=== PATIENT | male | born 1945 | race Caucasian/White ===

== ENCOUNTER 2019-03-21 10:54 | Outpatient (CLI) | payer OTHER, SELFPAY ==
[2019-03-21 12:31] LABS: ALT 37 U/L (12-78); AST 28 U/L (15-37); Albumin 3.5 g/dL (3.4-5.0); Alkaline Phosphatase 61 U/L (46-116); Anion Gap 10.4 mmol/L (3-11); BUN 20 mg/dL (7-18); Bilirubin, Total 1.2 mg/dL (0.2-1.0); CO2 25.6 mmol/L (21.0-32.0); Calcium 8.7 mg/dL (8.5-10.1); Calculated LDL 41 mg/dL; Chloride 107 mmol/L (98-107); Cholesterol 121 mg/dL (50-200); Glucose 102 mg/dL (70-100); HDL Cholesterol 74 mg/dL (40-60); Potassium 4.7 mmol/L (3.5-5.1); Sodium 143 mmol/L (136-145); Total Protein 6.1 g/dL (6.4-8.2); Triglyceride 34 mg/dL (30-150)
== END 2019-03-21 11:14 ==
PROVIDERS: PCP Family Medicine; Visit Provider Family Medicine
DX: I10 Essential (primary) hypertension (principal)
CPT/HCPCS: 36415; 80053; 80061; 83721

== ENCOUNTER 2020-03-11 07:21 | Outpatient (CLI) | payer OTHER, SELFPAY ==
[2020-03-16 00:58] LABS: SARS-CoV-2 RNA Undetected (Undetected); SARS-CoV-2 Specimen Source Nasopharynx
== END 2020-03-11 07:41 ==
PROVIDERS: PCP Family Medicine; Visit Provider Family Medicine
DX: Z11.59 Encounter for screening for other viral diseases (principal)
CPT/HCPCS: U0003

== ENCOUNTER 2020-04-03 15:53 | Outpatient (REF) | payer OTHER, SELFPAY ==
[2020-04-04 12:13] LABS: Giardia & Cryptosporidium Ag POSITIVE
== END 2020-04-03 16:13 ==
LOC: LBN 15:53
PROVIDERS: PCP Family Medicine; Visit Provider Family Medicine
DX: R19.7 Diarrhea, unspecified (principal)
CPT/HCPCS: 87329

== ENCOUNTER 2020-04-19 08:10 | Outpatient (REF) | payer OTHER, SELFPAY ==
--- NOTE | 2020-04-19 | DI.CT_ITS ---
EXAM: CT HEAD WO_ SECOND READ CLINICAL HISTORY: MINOR HEAD TRAUMA, OFFICIAL READ OF OUTSIDE IMAGES TECHNIQUE: COMPARISON: No exams were available for comparison FINDINGS: Interpretation of outside films from [facility] dated March 21. Noncontrast cranial CT was performed. There is mild generalized cerebral atrophy. There is marked a symmetry of the appearance of the lateral cerebral ventricles. There appears to be a cavum vergae de formity with superimposed enlargement of right lateral ventricle and shift of the ventricular midline to the left. However the periventricular white matter does not appear significantly displaced or asymmetric. No g ross mass effect. Normal appearance of the 4th ventricle. Mildly dilated 3rd ventricle. No intracranial hemorrhage. Unremarkable appearance of the orbital structures. Visualized paranasal sinuses and mastoid air cells are clear. Unremarkable appearance of the temporal bone structures. IMPRESSION: Atypical appearance of lateral cerebral ventricles with underlying cavum vergae deformity. Due to th e severity of the asymmetry, I would suggest that brain MRI be performed without and with contrast ad ministration to rule out occult neoplastic disease causing ventricular outlet obstruction. RADIATION DOSE DELIVERED: Total DLP
== END 2020-04-19 08:30 ==
LOC: DI 08:10
PROVIDERS: PCP Family Medicine; Visit Provider Family Medicine
DX: R90.89 Other abnormal findings on diagnostic imaging of central nervous system (principal); G93.89 Other specified disorders of brain
CPT/HCPCS: 70450

== ENCOUNTER 2020-04-24 02:27 | Outpatient (CLI) | payer OTHER, SELFPAY ==
--- NOTE | 2020-04-24 07:45 | DI.MRI_ITS ---
EXAM: MR BRAIN WO/W CLINICAL HISTORY: abnl CT Scan, R93.0 TECHNIQUE: Multiplanar multisequence MRI of the brain was performed. CONTRAST MATERIAL: IV Contrast: 15 ML of Dotarem contrast administered. COMPARISON: CT CT HEAD WO from 03/21/2020 FINDINGS: VENTRICLES AND EXTRA AXIAL SPACES: There is an enlarged right lateral ventricle. Within the ventricl e there is a thin walled CSF signal intensity lesion present. It measures 6.1 x 3.2 cm. It does exh ibit a mass effect on the midline structures. No enhancement is seen following contrast administrati on there is cerebral atrophy consistent with the patient's age. HEMORRHAGE: None. CEREBRAL PARENCHYMA: No focus of restricted diffusion to suggest acute infarct. No space-occupying le bebeto identified. Multiple foci of hyperintense signal are seen on the T2 and FLAIR images in the whit e matter most consistent with chronic microvascular ischemic disease. MIDLINE SHIFT: None. BRAINSTEM/CEREBELLUM: Normal. CALVARIUM: Normal. ENHANCEMENT: No suspicious enhancement identified. VISUALIZED PARANASAL SINUSES/MASTOIDS: Clear. [place]: Normal flow void. PITUITARY GLAND: Unremarkable. OTHER FINDINGS: IMPRESSION: 6.1 x 3.2 cm thin walled nonenhancing CSF signal intensity lesion within the right lateral ventricle. Primary diagnostic consideration is for an ependymal cyst. Other consideration should include chor oid plexus cyst or epidermoid cyst. DATA REPOSITORY:
[2020-04-24 11:10] LABS: CREATININE 1.01 mg/dL (0.70-1.30)
[2020-04-24] MEDS: Normal Saline Flush 10 ML SYR IVP (11:24)
[2020-04-24] MEDS: Gadoterate meglumine 20 ML VIAL 15 ML IVP (11:24)
== END 2020-04-24 02:47 ==
PROVIDERS: PCP Family Medicine; Visit Provider Family Medicine
DX: R93.0 Abnormal findings on diagnostic imaging of skull and head, not elsewhere classified (principal)
CPT/HCPCS: 70553; 82565

== ENCOUNTER 2020-05-06 10:22 | Day surgery (SDC) | payer OTHER, SELFPAY ==
--- NOTE | 2020-05-06 06:58 | COLE_ITS ---
Date of service: 05/06/20 Time of Service: 12:06 Colonoscopy Report Date of procedure: 05/06/20 Pre-op diagnosis general: Hx of colon polyps Post-op diagnosis procedure note: other (Multiple polyps and gregorio-diverticulosis) Procedure: Colonoscopy with polypectomy Surgeon: Yasemin Boggs Anesthesia proc note operative: other (general/ASA 2/maurice Malik, [employer]) Estimated blood loss (mL): 5 Pathology: other (Cecal P x1, Descending P x3, sigmoid polyps x2) Complications: None Disposition: same day Indications: The patient is here for Colonoscopy pre-op. 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 He has no family history of colon cancer. He has not had any bowel habit changes. -Discussed colonoscopy bowel prep as well as the procedure. Discussed possible complications of the procedure to include bleeding, pain, perforation, missed small lesion/polyp, sore throat, aspiration and adverse reaction to the medications. Questions were answered to patient?s satisfaction. No guarantees were implied or given. He will hold his aspirin x 5 days prior to his procedure. Prep: Miralax/Dulcolax Procedure Start Time: 11:25 Procedure End Time: 12:00 Retraction Time: 19 minutes Findings: Multiple flat polyps and one pedunculated polyp Procedure Description: After informed consent was obtained the patient was taken to the procedure room and placed in a left decubitous position. Monitors were applied and a time out was done. The patients name, date of , procedure, allergies to medications and metal in their body was reviewed. The patient was then sedated. Once sedated and comfortable a rectal exam was done. External exam was normal. Internal exam revealed a normal sphincter tone and no palpable masses. The prostate felt smooth. The scope was then introduced and retro-flexed. No internal hemorrhoids were identified. The scope was then advanced to the cecum without difficulty. The ileocecal valve and appendiceal orifice were identified. The prep was good. The scope was then slowly retracted over 19 minutes back into the rectum. Polyps were removed with cold forceps in the cecum, descending colon and sigmoid colon. Polyps were removed with a hot snare in the descending colon x2 (sessile polyps both 10 mm in size) and sigmoid colon x1 (pedunculated polyp >10 mm in size). There was also gregorio-diverticulosis of the colon. The scope was removed and the patient was woken up and taken back to Same day surgery in stable condition. The patient tolerated the procedure well and there were no immediate complications. Follow up: The patient should follow up in 3 years unless they develop changes in bowel habits or other new gastrointestinal complaints.
--- NOTE | 2020-05-06 06:59 | W.PM.DSUDISC ---
Discharge Plan Disposition Patient Disposition: HOME Condition: Good Discharge Details Reason For Visit: Hx of polyps Attending Provider: Yasemin Boggs Primary Care Provider: Sunita Haynes Home Meds and New Rx's Prescriptions: Continued atorvastatin [Lipitor] 40 mg tablet 20 mg PO DAILY Qty: 90 RF: 12 calcium citrate-vitamin D3 [Calcium Citrate +] 1 EACH tablet 1 ea PO DAILY RF: 0 Varicella-Zoster Ge/As01b/Pf [Shingrix Vial Kit] 50 MCG INJ 50 mcg IM ONCE Qty: 1 RF: 1 aspirin [Aspir-81] 81 MG tablet,delayed release (DR/EC) 81 mg PO DAILY RF: 0 jbayuxhtree-zovjjbuyy-tqn C-Mn [Glucosamine 1500 Complex] 1 EACH capsule 1 cap PO BID RF: 0 lutein-zeaxanthin 1 EACH capsule 1 cap PO DAILY RF: 0 vitamin E 400 UNIT capsule 400 mg PO DAILY RF: 0 ascorbic acid-ascorbate sodium 500 MG wafer 500 mg PO DAILY RF: 0 omega-3 fatty acids-vitamin E 1,000 mg Capsule 1 cap PO DAILY RF: 0 Discontinued polyethylene glycol 3350 17 gram/dose powder 238 g PO ONCE Qty: 238 RF: 0 bisacodyl [Dulcolax (bisacodyl)] 5 mg tablet,delayed release (DR/EC) 5 mg PO ONCE Qty: 4 RF: 0 Discharge Instructions Additional Instructions: Findings: 7 polyps Diverticulosis Follow up: 3 years Please call if you develop: fevers >101.5 Nausea or Vomiting Abdominal pain that is not transient DAY SURGERY UNIT POST ENDOSCOPY INSTRUCTIONS 1. Because there will be medication in your system for the next 24 hours, you may feel a little sleepy. Your coordination will be affected. Therefore: a. Do not drive or operate dangerous equipment for 24 hours. b. Do not drink alcohol beverages for 24 hours (not even beer). c. Plan to go home and rest for the day. 2. Generally there are no restrictions on your activity after a day or so has gone by, but you may feel a bit fatigued for a few days. 3 After you arrive home you may have a light meal and return to a normal diet as you can tolerate it without feeling sick to your stomach. 4. After surgery, you may feel pain or discomfort. This should be only transient, but if it persists please contact your doctor. 5. If there are any questions regarding the findings of your procedure, please feel free to contact your doctor. 6. If you are unable to contact your doctor with a problem, contact the hospital at [phone]. 7. Continue all your regular medications unless directed otherwise. I understand the above instructions and have no questions. Signature of Patient or Responsible Adult Escort Date/Time Name of Responsible Adult Escort Signature of Nurse Date/Time Activity:: Activity as Tolerated Diet:: High Fiber diet Discharge Orders Discharge Orders: Discharge Order (Routine); Ordered 05/06/20 Ordered By: Yasemin Boggs
[2020-05-06 10:32] VITALS: BP 150/95; PULSE 67; RESP 16; TEMP 36.2; O2SAT 97
[2020-05-06] MEDS: Lactated Ringers 1,000 ML 80 ML IV (11:00)
--- NOTE | 2020-05-06 11:32 | BOWEL_PTH ---
PATIENT: Jose F Tom LOC: PARAM U#:[id number] AGE/SX: 75/M ROOM: RE05/06/[address]: Yasemin Boggs MD : 1945 BED: DIS: 05/06/2020 SPEC #: [id number] RECD: 05/06/20 12:49 STATUS: MITA RE #: [id number] DAVID: 05/06/20 11:[address]: Yasemin Boggs DEPT: Surgical Specimen RECD BY: Rosina Chery ENTERED: 05/06/20 12:51 SP TYPE: Bowel OTHR DR: Sunita Haynes MD, DC Tissues: 1 - BIOPSY BOWEL 2 - BIOPSY BOWEL 3 - BIOPSY BOWEL 4 - BIOPSY BOWEL Procedures: GROSS AND MICRO LEVEL 4 Comments: [id number]
[2020-05-06 12:30] VITALS: BP 110/74; PULSE 65; RESP 16; TEMP 36.2; O2SAT 96
== END 2020-05-06 13:03 | disposition home or self-care (01) ==
LOC: SUR 10:22
PROVIDERS: PCP Family Medicine; Visit Provider Surgery
PROC: 0DJD8ZZ Inspection of Lower Intestinal Tract, Via Natural or Artificial Opening Endoscopic (ICD-10-PCS; CPT 45378; principal; 2020-05-06 11:45)
DX: Z12.11 Encounter for screening for malignant neoplasm of colon (principal); D12.5 Benign neoplasm of sigmoid colon; D12.4 Benign neoplasm of descending colon; D12.0 Benign neoplasm of cecum; Z86.010 Personal history of colon polyps; I25.10 Atherosclerotic heart disease of native coronary artery without angina pectoris; K57.30 Diverticulosis of large intestine without perforation or abscess without bleeding
CPT/HCPCS: 45385; 45380; 88305; J2001

== ENCOUNTER 2020-05-30 00:18 | Outpatient (CLI) | payer OTHER, SELFPAY ==
--- NOTE | 2020-05-30 07:30 | DI.US_ITS ---
APPROVED REPORT EXAM: Comprehensive 2D, Doppler, and color-flow Echocardiogram Patient Location: Out-Patient Mri Ct Tech: Lucero Montilla RDCS (AE) Indications: CAD Other Information Study Quality: Good Conclusion Left Ventricle : The left ventricle is normal size. The left ventricular systolic function is normal. The left ventricular ejection fraction is within the normal range. There is normal left ventricular wall thickness. There is normal LV segmental wall motion. The left ventricular diastolic function is normal. LVEF is 55-60%. Right Ventricle : The right ventricle is normal size. The right ventricular systolic function is norm al. Atria : The left atrium size is normal. The right atrium size is normal. Mitral Valve : The mitral valve is normal in structure. No evidence of mitral valve stenosis. Mild to moderate mitral regurgitation. Mitral regurgitation jet is eccentrically directed. Great Vessels : The aortic root is normal in size. The ascending aorta is normal in size. Ascending a jered is not well visualized. IVC is normal in size and collapses >50% with inspiration. Study from 10/22/2017: There is no significant change. Wall motion Left Ventricle The left ventricle is normal size. The left ventricular systolic function is normal. The left ventric ular ejection fraction is within the normal range. There is normal left ventricular wall thickness. T here is normal LV segmental wall motion. The left ventricular diastolic function is normal. There is no ventricular septal defect visualized. LVEF is 55-60%. Right Ventricle The right ventricle is normal size. The right ventricular systolic function is normal. Atria The left atrium size is normal. The right atrium size is normal. The interatrial septum is intact wit h no evidence for an atrial septal defect. Aortic Valve The aortic valve is normal in structure. Aortic valve is trileaflet. There is no aortic valvular sten osis. Trace aortic regurgitation. Mitral Valve The mitral valve is normal in structure. No evidence of mitral valve stenosis. Mild to moderate ryan l regurgitation. Mitral regurgitation jet is eccentrically directed. Mild mitral valve prolapse. Tricuspid Valve The tricuspid valve is normal in structure. There is no tricuspid valve stenosis. Mild tricuspid regu rgitation. Pulmonic Valve The pulmonary valve is normal in structure. There is no pulmonic valvular stenosis. Trace pulmonic re gurgitation. Great Vessels The aortic root is normal in size. The ascending aorta is normal in size. Ascending aorta is not well visualized. IVC is normal in size and collapses >50% with inspiration. Pericardium There is no pericardial effusion. 2D Dimensions IVSD d PLAX 1.09 cm M: 0.6-1.2 LV Vol A2C d MOD 127.9 mL LVPW d PLAX 1.07 cm M: 0.6 - 1.2 LV Vol A4C d MOD 127.4 mL LVID d PLAX 5.79 cm M: 4.2 - 5.8 LA vol/ BSA A2C s A-L 30.1 mL/m2 LVDs 3.90 cm M: 2.5 - 4.0 LA vol/ BSA A4C s A-L 28.8 mL/m2 Ao Root d 3.44 cm M: 3.1 - 3.7 LA Vol/ BSA Biplane s A-L 31.0 mL/m2 RA Area A4C 15.31 cm2 LA Area A4C s MOD 19.35 cm2 RA Vol/ BSA A4C s A-L 19.5 mL/m2 LA Area A2C s MOD 18.74 cm2 Ao Asc Diam d 3.31 cm M: 2.6 - 3.4 LV EF A4C MOD 53.6 % LV EF Teichholz 59.7 % LV EF A2C MOD 57.3 % LVEF (Leigh's) 55.65 % M: 52 - 72 LV EF Biplane MOD 55.6 % LV Volume 98.31 mL M: 62 - 150 SV 72.30 mL LV Volume Index 50.67 mL/m2 M: 34 - 74 SV Index 37.11 mL/m2 LV Vol Biplane MOD 129.9 mL FS 32.20 % M-Mode TAPSE 2.68 cm (M/F) >1.7 LV Diastology MV E' medial 0.051 (>0.07 m/s) E/A Ratio 0.7 LV E/e MED 9.80 (<14) MV E Vmax 0.50 (0.4-1.3 m/s) MV E' lateral 0.059 (>0.1 m/s) MV A Vmax 0.70 (0.4-1.3 m/s) LV E/e LAT 8.50 (<14) MV E/A Ratio 0.70 MV E/E' medial 9.81 MV E/E' lateral 8.50 Aortic Valve LVOT Area 4.25 cm2 AoV Area Vmax 3.38 cm2 LVOT Vmax 0.80 m/s AoV Area/ BSA (Vmax) 1.73 cm2/m2 LVOT Mean [place]. 0.52 m/s LATASHA Mean [place]. 3.03 cm2 LVOT Peak Grad 2.6 mmHg LATASHA Mean [place]. Index 1.56 cm2/m2 LVOT Mean Grad 1.3 mmHg LVOT VTI 0.181 m LVOT Diam s 2.30 cm AoV Vmax 1.01 m/s Velocity Ratio 0.79 AoV Mean [place]. 0.73 m/s AoV Peak Grad 4.1 mmHg LVOT SV 76.71 mL AoV Mean Grad 2.3 mmHg AoV VTI 0.219 m AoV Area VTI 3.50 cm2 AoV Area/ BSA (VTI) 1.80 cm/m2 Mitral Valve MV DT 228 (160-240 msec) MR Vmax 5.84 m/s MV PHT 66 msec MR VTI 0.994 m MV Area PHT 3.33 cm2 MR Peak Grad 136.5 mmHg MV VTI 0.219 m MR Mean Grad 116.5 mmHg MV VTI Annulus 0.219 m MR PISA Radius 0.43 cm MV Area VTI 3.51 (4.0-6.0 cm2) MR EROA 0.07 cm2 MR Aliasing Velocity 0.35 m/s MR PISA 1.19 cm2 Pulmonary Valve PV Vmax 1.16 (0.5-1.5 m/s) RVOT Peak Gr. 2.32 mmHg PV Peak Grad 5.4 mmHg RVOT Mean Gr. 1.30 mmHg PV Mean Grad 2.9 mmHg RVOT VTI 0.149 m PV VTI 0.230 m RVOT Vmax 0.76 m/s Tricuspid Valve TR Peak Grad 18.1 mmHg TR Vmax 2.13 m/s RA Pressure 3.00 mmHg RVSP (TR) 21.2 mmHg
== END 2020-05-30 00:38 ==
PROVIDERS: PCP Family Medicine; Visit Provider Family Medicine
DX: I25.10 Atherosclerotic heart disease of native coronary artery without angina pectoris (principal); I34.0 Nonrheumatic mitral (valve) insufficiency
CPT/HCPCS: 93306

== ENCOUNTER 2020-06-19 04:44 | Outpatient (CLI) | payer OTHER, SELFPAY ==
[2020-06-19 13:34] LABS: ALT 34 U/L (16-63); AST 24 U/L (15-37); Albumin 3.8 g/dL (3.4-5.0); Alkaline Phosphatase 53 U/L (46-116); Anion Gap 3.7 mmol/L (3-11); BUN 18 mg/dL (7-18); Bilirubin, Total 1.7 mg/dL (0.2-1.0); CO2 32.3 mmol/L (21.0-32.0); CREATININE 0.88 mg/dL (0.70-1.30); Calcium 8.8 mg/dL (8.5-10.1); Chloride 105 mmol/L (98-107); Cholesterol 154 mg/dL (<200); Glucose 96 mg/dL (74-106); HDL Cholesterol 90 mg/dL (40-60); Potassium 4.6 mmol/L (3.5-5.1); Sodium 141 mmol/L (136-145); Total Protein 6.1 g/dL (6.4-8.2)
[2020-06-19 13:36] LABS: Triglyceride < 25 mg/dL (<150)
[2020-06-19 13:46] LABS: LDL CHOLESTEROL 54 mg/dL (<100)
[2020-06-27 12:46] LABS: PSA, Diagnostic 1.4 ng/ml (0-6.5)
== END 2020-06-19 05:04 ==
PROVIDERS: PCP Family Medicine; Visit Provider Family Medicine
DX: I10 Essential (primary) hypertension (principal); I25.10 Atherosclerotic heart disease of native coronary artery without angina pectoris; N40.0 Benign prostatic hyperplasia without lower urinary tract symptoms
CPT/HCPCS: 36415; 80053; 80061; 83721; 84153

== ENCOUNTER 2020-12-02 02:11 | Outpatient (CLI) | payer OTHER, SELFPAY ==
--- NOTE | 2020-12-02 07:40 | DI.MRI_ITS ---
EXAM: MR BRAIN WO/W CLINICAL HISTORY: follow up on [facility] MRI,CYST, R93.3 TECHNIQUE: Multiplanar multisequence MRI of the brain was performed. Both noninfused and contrast i nfused sequences were performed. IV Contrast injected was cc Dotarem. COMPARISON: CT CT HEAD WO from 03/21/2020 MR MR BRAIN WO/W from 04/24/2020 MR MR BRAIN WO/W from 04/24/2020 FINDINGS: CEREBRAL PARENCHYMA: There is no evidence of intracranial hemorrhage. The previously described thin walled cystic structure in the right lateral ventricle is again noted, this measuring 6 cm AP by 3.3 cm wide by 2.7 cm craniocaudal. This exhibits minimal if any significant change from prior study and is again noted be causing enlarg ement of the right lateral ventricle and shift of the midline septum, unchanged. Its wall does not e xhibit prominent enhancement and there is no abnormal nodularity nor abnormal enhancing mural nodules . No new surrounding parenchymal edema. There are multiple foci of white matter nonspecific signal which are unchanged. There are no ring en hancing lesions in the brain. No new abnormal meningeal enhancement, focal nor diffuse. No cerebell ar tonsillar ectopia. PITUITARY GLAND: No mass nor parasellar abnormality. No obvious abnormality in the cavernous sinuses. FLOW VOIDS: The expected flow void are noted. No evidence of obvious aneurysm nor obvious vascular ma lformation. PARANASAL SINUSES: The visualized paranasal sinuses appear unremarkable. ORBITS: No obvious abnormal findings. IMPRESSION: 1. No significant change compared to the prior MRI scan of April 24, 2020. The previously describ ed 6 x 3.3 x 2.6 cm thin walled nonenhancing CSF intensity signal lesion in the right lateral ventric le is again noted. Either large choroid plexus cyst versus ependymal cyst or epidermoid cyst. Never theless, unchanged without significant surrounding brain edema. 2. No abnormal enhancing intracranial finding. 3. Multiple foci of white matter hyperintense signal are unchanged consistent with chronic microvasc ular ischemic disease. There is no evidence of acute infarction. No evidence of intracranial hemorr grecia. DATA REPOSITORY:
[2020-12-02] MEDS: Normal Saline Flush 10 ML SYR IVP (09:09)
[2020-12-02] MEDS: Gadoterate meglumine 20 ML VIAL 16 ML IVP (09:10)
== END 2020-12-02 02:31 ==
PROVIDERS: PCP Family Medicine; Visit Provider Family Medicine
DX: R93.3 Abnormal findings on diagnostic imaging of other parts of digestive tract (principal); I67.82 Cerebral ischemia; Z01.812 Encounter for preprocedural laboratory examination
CPT/HCPCS: 70553; 82565

== ENCOUNTER 2021-04-21 08:33 | Observation (INO) | payer OTHER, SELFPAY ==
[2021-04-21] VITALS (68 sets, daily range): BP systolic 116–175; BP diastolic 71–110; PULSE 56–95; RESP 14–25; TEMP 36.3–37.6; O2SAT 93–99
--- NOTE | 2021-04-21 08:30 | RT.EKG_ITS ---
APPROVED REPORT Exam: Resting ECG Reason for Exam: chest pain Patient Location: E HR:62 bpm ECG Measurements Heart Rate 62 AXIS NV 212 P 48 QRSd 114 QRS 73 QT 422 T 34 QTc 430 Conclusion Sinus rhythm...normal P axis, V-rate 60- 99 Borderline prolonged NV interval...NV >212, V-rate 50- 90 ST elevation, consider anterior injury...ST >0.15mV, V1-V5 sinus rhythm at 62, normal axis, ST elevations V1 and V2 present on prior 06/11/2020, does not meet S GERMAN criteria, nondiagnostic EKG
--- NOTE | 2021-04-21 08:39 | ED.GENADUL_ITS ---
Discharge Plan Disposition Patient Disposition: [facility] INPATIENT Discharge Details Chief Complaint: Chest Pain Clinical Impression: Chest pain Primary Care Provider: Sunita Haynes ED Provider: Fadia Schaefer Home Meds and New Rx's Prescriptions: No Action calcium citrate-vitamin D3 [Calcium Citrate +] 1 EACH tablet 1 ea PO DAILY RF: 0 Varicella-Zoster Ge/As01b/Pf [Shingrix Vial Kit] 50 MCG INJ 50 mcg IM ONCE Qty: 1 RF: 1 aspirin [Aspir-81] 81 MG tablet,delayed release (DR/EC) 81 mg PO DAILY RF: 0 [id number] C-Mn [Glucosamine 1500 Complex] 1 EACH capsule 1 cap PO BID RF: 0 lutein-zeaxanthin 1 EACH capsule 1 cap PO DAILY RF: 0 vitamin E 400 UNIT capsule 400 mg PO DAILY RF: 0 ascorbic acid-ascorbate sodium 500 MG wafer 500 mg PO DAILY RF: 0 atorvastatin [Lipitor] 40 mg tablet 40 mg PO DAILY RF: 0 omega-3 fatty acids-vitamin E 1,000 mg Capsule 1 cap PO DAILY RF: 0 Medical Decision Making Jose F Tom is a 76-year-old man with a history of hypertension, coronary artery disease status post LAD stent who presented to the emergency department with chest pressure that started at 230 or 3:00 this morning while asleep. Patient reports pain was initially 4 out of 10, and now rates it as 1 out of 10. On exam there is no systolic murmur, cardiopulmonary exam otherwise benign. No chest tenderness palpation. No lower extremity edema, no posterior calf tenderness palpation. Concern for acute coronary syndrome, PE, musculoskeletal, other. Exam/history at this time is not consistent with acute aortic pathology, sepsis, acute emergent intra-abdominal pathology. EKG shows ST elevation V1 and V2 present on prior, no STEMI. Plan for IV placement, screening labs, telemetry. Imaging after D-dimer results. Will hold nitroglycerin for now as patient reporting pain 1 out of 10. Patient chewed full aspirin prior to arrival. 9:26: 10 beats of V.tach noted on monitor, patient asymptomatic, spontaneous conversion to sinus rhythm. 1448: Discussed Pt with Sobia Jaime of cardiology at [facility], accepting physician is Dr. Cardenas of cardiology for transfer tomorrow for possible catheterization. Cardiology recommends 81 mg of aspirin daily, 80 mg Lipitor daily, 12.5 mg metoprolol twice daily, n.p.o. after midnight for catheterization. Plan for admission to [facility]. Medical Records Medical records reviewed: Yes I reviewed the patient's medical records. Imaging Data Radiologic Study: Attestation: I personally reviewed and interpreted this imaging study as follows: Radiologist's impression: EXAM: XR CHEST 2V PA LATERAL CLINICAL HISTORY: chest pain TECHNIQUE: 2D digital imaging was performed. COMPARISON: CR CHEST 2 VIEWS PA,LAT from 05/16/2017 CR CHEST 2 VIEWS PA,LAT from 05/16/2017 FINDINGS: MEDIASTINUM: Normal. HEART: Normal. PULMONARY VASCULATURE: Normal. LUNGS: There is a question of a rounded opacity in the inferior aspect of the right lower lobe. This is best appreciated on the AP view. PLEURAL SPACE: No pleural effusion or pneumothorax. BONE:Within normal limits for the patient's age. OTHER FINDINGS:Normal. IMPRESSION: Opacity in the right inferior lung medially. Infiltrate versus mass. CT scan is recommended for further evaluation. EXAM: CT CHEST W CLINICAL HISTORY: abnormal CXR TECHNIQUE: Imaging Protocol: Axial computed tomography images with coronal and sagittal reformatted images were created and reviewed CONTRAST MATERIAL: Intravenous: Omnipaque 350 Contrast volume:70 mL. COMPARISON: CR XR CHEST 2V PA LATERAL from 04/21/2021 CR XR CHEST 2V PA LATERAL from 04/21/2021 FINDINGS: Tracheobronchial tree: Patent where visualized. Mediastinum and Bobbi: No dominant adenopathy or fluid collection. Pulmonary parenchyma: No consolidation or dominant measurable mass. No architectural distortion. There is a 0.4 cm noncalcified pulmonary nodule in the right middle lobe. There is dependent atelectasis in the lung bases. Pleura: No effusion or pneumothorax. Heart: The heart is not dilated. Mild coronary artery calcification. No pericardial effusion. Aorta: Thoracic aorta non-dilated. Mild atherosclerosis. Upper abdomen: Unremarkable. Lymph nodes: Within normal limits. Bones: Normal. Soft tissues: Unremarkable. IMPRESSION: 1. No finding in the right lung to correspond to the mammographic abnormality. 2. 0.4 cm noncalcified pulmonary nodule in the right middle lobe. For low risk patients, no follow-up is recommended. For high risk patients (history of smoking or other risk factors), a follow-up examination in 12 months is recommended. 3. Results of this exam have been verbally communicated with provider. Lab Data Lab results reviewed: Yes I reviewed the patient's lab results. Labs: Laboratory Tests Range/Units 04/21/21 04/21/21 04/21/21 08:48 08:48 08:48 WBC (4.4-10.8) 10^3/uL 6.98 RBC (4.36-5.78) 10^6/uL 4.39 Hgb (13.5-17.5) g/dL 14.5 Hct (40.0-50.0) % 44.5 MCV (80-95) fL 101.4 H MCH (27.0-33.0) pg 33.0 MCHC (32.0-36.0) % 32.6 RDW (11.8-14.1) % 12.6 Plt Count (130-400) 10^3/uL 189 MPV (8.0-11.0) fL 9.5 Immature Gran % 0.3 Neutrophils % 73.0 Lymphocytes % 11.7 Monocytes % 10.5 Eosinophils % 3.9 Basophils % 0.6 Nucleated RBC % % 0 Absolute Neutrophils (1.2-6.7) 10^3/uL 5.10 Absolute Lymphocytes (1.2-3.4) 10^3/uL 0.82 L Absolute Monocytes (0.1-0.8) 10^3/uL 0.73 Absolute Eosinophils (0.0-0.7) 10^3/uL 0.27 Absolute Basophils (0.0-0.2) 10^3/uL 0.04 PT (9.3-11.0) sec INR (0.9-1.1) D-Dimer (<500) ng/mlFEU Sodium (136-145) mmol/L 143 Potassium (3.5-5.1) mmol/L 4.4 Chloride (98-107) mmol/L 108 H Carbon Dioxide (21.0-32.0) mmol/L 32.3 H Anion Gap (3-11) mmol/L 2.7 L BUN (7-18) mg/dL 20 H Creatinine (0.70-1.30) mg/dL 0.9 Estimated GFR/1.73 m2 (mL/min/1.73m2) >= 60.00 Glucose (74-106) mg/dL 109 H Calcium (8.5-10.1) mg/dL 8.9 Magnesium (1.8-2.4) mg/dL 2.0 Total Bilirubin (0.2-1.0) mg/dL 1.0 AST (15-37) U/L 17 ALT (16-63) U/L 30 Alkaline Phosphatase (46-116) U/L 56 Troponin I (<0.06) ng/mL < 0.05 NT-Pro-B Natriuret Pep (<300) pg/mL 68 Total Protein (6.4-8.2) g/dL 6.6 Albumin (3.4-5.0) g/dL 3.7 Range/Units 04/21/21 04/21/21 08:48 11:45 WBC (4.4-10.8) 10^3/uL RBC (4.36-5.78) 10^6/uL Hgb (13.5-17.5) g/dL Hct (40.0-50.0) % MCV (80-95) fL MCH (27.0-33.0) pg MCHC (32.0-36.0) % RDW (11.8-14.1) % Plt Count (130-400) 10^3/uL MPV (8.0-11.0) fL Immature Gran % Neutrophils % Lymphocytes % Monocytes % Eosinophils % Basophils % Nucleated RBC % % Absolute Neutrophils (1.2-6.7) 10^3/uL Absolute Lymphocytes (1.2-3.4) 10^3/uL Absolute Monocytes (0.1-0.8) 10^3/uL Absolute Eosinophils (0.0-0.7) 10^3/uL Absolute Basophils (0.0-0.2) 10^3/uL PT (9.3-11.0) sec 9.9 INR (0.9-1.1) 1.0 D-Dimer (<500) ng/mlFEU 346 Sodium (136-145) mmol/L Potassium (3.5-5.1) mmol/L Chloride (98-107) mmol/L Carbon Dioxide (21.0-32.0) mmol/L Anion Gap (3-11) mmol/L BUN (7-18) mg/dL Creatinine (0.70-1.30) mg/dL Estimated GFR/1.73 m2 (mL/min/1.73m2) Glucose (74-106) mg/dL Calcium (8.5-10.1) mg/dL Magnesium (1.8-2.4) mg/dL Total Bilirubin (0.2-1.0) mg/dL AST (15-37) U/L ALT (16-63) U/L Alkaline Phosphatase (46-116) U/L Troponin I (<0.06) ng/mL < 0.05 NT-Pro-B Natriuret Pep (<300) pg/mL Total Protein (6.4-8.2) g/dL Albumin (3.4-5.0) g/dL ECG Data Attestation: I personally reviewed and interpreted this ECG (s) as follows: Interpretation: EKG 8:39 shows sinus rhythm at 62, normal axis, ST elevations V1 and V2 present on prior 06/11/2020, does not meet STEMI criteria, nondiagnostic EKG EKG 11: 46 shows sinus bradycardia 59, normal axis, ST elevation V1 and V2 without major change from prior, does not meet STEMI criteria, nondiagnostic EKG HPI General Mode of arrival: ambulatory . Date/Time Provider Initiated Documentation: 04/21/21 08:33 . Limitations to Documentation: no limitations . Information obtained by: patient, RN notes reviewed and old records reviewed . HPI Narrative: Jose F Tom is a 76 y/o man with a history of hypertension, coronary artery disease with LAD stent placed 2014 presenting to the emergency department chief complaint chest pain. Patient reports that he awoke from sleep at 2:30 or 3:00 this morning with a pressure sensation in his left chest. Patient reports that he slept poorly after that but did go back to sleep. He reports that he woke up this morning with the same pain. Patient reports that pain has been essentially unchanged since onset, although he reports it was possibly somewhat worse while climbing stairs this morning. Unchanged with eating. He reports that since being the emergency department and in the stretcher, his discomfort has decreased. He reports that at maximum discomfort was 4 out of 10, currently 1 out of 10. He reports that when climbing stairs this morning he may have felt somewhat more short of breath than usual, otherwise he denies associated symptoms. Before this morning he was previously well in his usual state of health. No unusual circumstances yesterday. No fever, cough, vomiting, diarrhea, numbness, weakness, swelling, rash. Patient reports that he drinks 2 to 3 glasses of wine per night and did so last night as usual. Has been eating and drinking fluids as usual. Patient reports that he ate breakfast without issue this morning. Patient reports that he runs 3 miles every other day, did so 2 days ago without issue. Patient was supposed to run this morning but did not due to his chest discomfort and presenting to the emergency department. Patient reports that he typically takes 81 mg of aspirin at night which she did last night. He also reports that he chewed 324 mg of aspirin this morning with his chest discomfort prior to arrival. Related Data Home Medications Medication Instructions Recorded Confirmed aspirin [Aspir-81] 81 mg PO DAILY 06/30/13 04/21/21 mppwcmbfnmd-vrksvensy-see C-Mn 1 cap PO BID 06/30/13 04/21/21 [Glucosamine 1500 Complex] lutein-zeaxanthin 1 cap PO DAILY 06/30/13 04/21/21 calcium citrate-vitamin D3 1 ea PO DAILY 12/18/13 04/21/21 [Calcium Citrate +] ascorbic acid-ascorbate sodium 500 mg PO DAILY 05/16/17 04/21/21 vitamin E 400 mg PO DAILY 05/16/17 04/21/21 omega-3 fatty acids-vitamin E 1 cap PO DAILY 05/03/20 04/21/21 atorvastatin [Lipitor] 40 mg PO DAILY 04/21/21 04/21/21 Allergies Allergy/AdvReac Type Severity Reaction Status Date / Time No Known Allergies Allergy Unverified 04/21/21 08:44 Review of Systems Narrative: Constitutional: denies fevers Eyes: denies eye pain ENT: denies ear pain, dental pain, sore throat Cardiovascular: denies edema, reports chest pressure Respiratory: denies cough, reports transient SOB as per HPI GI: denies abdominal pain, vomiting, diarrhea : denies flank pain MSK: denies back pain, neck pain, arthralgias, myalgias Skin: denies rash Neuro: denies headaches, numbness, weakness [facility] Medical History Abnormal CT scan of head Actinic keratosis Allergic rhinitis CAD (coronary artery disease) (06/05/14) stent place 06/05 Cardiovascular disease Hx of colonic polyps Hydrocele Hypertension Mitral valve prolapse Presence of stent in LAD coronary artery Skin cancer Surgical History Colonoscopy - IV Sedation (01/06/12) DR. TIMMONS-2 TUBULAR ADENOMAS Colonoscopy - MAC (05/19/17) History of shoulder surgery left Stented coronary artery Family History (Updated 06/14/20 @ 08:28 by Randy Odonnell) Mother , FALL at age 92. Essential hypertension Heart disease Father , 86 Essential hypertension Heart disease Myocardial infarction Brother Diabetes Essential hypertension Hyperlipidemia Maternal Grandfather , 76 Heart disease Paternal Grandfather , 56 No problems noted. Maternal Grandmother , 86 Heart disease Paternal Grandmother , 86 Heart disease Son No problems noted. Son Depression Alcohol abuse Hypertension Social History Smoking/Tobacco Use Status: Never Second Hand Exposure: Yes Smoking risk assessment performed?: Yes Alcohol Intake: current Alcohol Intake frequency: 0-2 drinks per day Alcohol type: beer, wine and hard liquor Drug use: Never Substance use type: does not use Caregiver/Support person: No Household members: spouse Housing: house Communication Needs: None Do you need help understanding health information?: Never Pets and animals: Yes Pets and animals: cat(s) and dog(s) Sexually active: Yes Do you think of yourself as: straight/heterosexual Current gender identity: male What is your relationship status?: How often do you talk on the phone with friends or family?: once per week How often do you get together with friends or relatives?: once per week How often do you attend presybeterian or caodaism services?: decline to answer Do you belong to any clubs or organized social groups?: no Panel score (0-1 are the most socially isolated patients): 1 What type of physical activity do you participate in: running Duration: 30-45 minutes/day Frequency: 3-4 times per week Lelo/Anabaptist: None Special lelo needs: No Seatbelt use: always Helmet use: Yes Helmet use: always Drive intox or ride w/intox racecar driver: No Do you feel safe at home: Yes Do you feel safe in your relationship?: Yes Victim of physical abuse: No Victim of emotional abuse: No Victim of sexual abuse: No Would you like helpful sources: No Exam Narrative Exam Narrative: Constitutional: well and [id number], pleasant, conversing normally HENT: head atraumatic/normocephalic/normal inspection, mucous membranes moist Eyes: conjunctiva normal, sclera normal, pupils 3mm b/l Neck: no stridor, normal ROM, trachea midline Chest: normal inspection, no tenderness to palpation Resp: normal work of breathing, LCTAB Cardio: normal rate, normal rhythm, systolic murmur present, patient reports as known GI: abdomen soft, non-tender, non-distended Back: normal inspection, no rash Skin: warm, dry, normal color, no rash Neuro: alert, not altered, grossly non-focal, normal tone Ext: no edema, no posterior calf tenderness to palpation Psych: normal mood, normal affect, normal behavior
[2021-04-21 09:17] LABS: Abs Immature Grans 0.02 10^3/uL (0.0-0.06); Absolute Basophil Count 0.04 10^3/uL (0.0-0.2); Absolute Eosinophil Count 0.27 10^3/uL (0.0-0.7); Absolute Lymphocyte Count 0.82 10^3/uL (1.2-3.4); Absolute Monocyte Count 0.73 10^3/uL (0.1-0.8); Basophils % 0.6; Eosinophils % 3.9; HCT 44.5 % (40.0-50.0); HGB 14.5 g/dL (13.5-17.5); Immature Grans % 0.3; Lymphocytes % 11.7; MCHC 32.6 % (32.0-36.0); MCV 101.4 fL (80-95); MPV 9.5 fL (8.0-11.0); Monocytes % 10.5; Nucleated RBC 0 %; Platelet Count 189 10^3/uL (130-400); RBC 4.39 10^6/uL (4.36-5.78); RDW 12.6 % (11.8-14.1); RDW-SD 47.5 fL; WBC 6.98 10^3/uL (4.4-10.8)
[2021-04-21 09:28] LABS: Prothrombin Time 9.9 sec (9.3-11.0)
[2021-04-21 09:57] LABS: D-Dimer 346 ng/mlFEU (<500)
--- NOTE | 2021-04-21 10:00 | DI.RAD_ITS ---
Exam(s) XR CHEST 2V PA LATERAL EXAM: XR CHEST 2V PA LATERAL CLINICAL HISTORY: chest pain TECHNIQUE: 2D digital imaging was performed. COMPARISON: CR CHEST 2 VIEWS PA,LAT from 05/16/2017 CR CHEST 2 VIEWS PA,LAT from 05/16/2017 FINDINGS: MEDIASTINUM: Normal. HEART: Normal. PULMONARY VASCULATURE: Normal. LUNGS: There is a question of a rounded opacity in the inferior aspect of the right lower lobe. This is best appreciated on the AP view. PLEURAL SPACE: No pleural effusion or pneumothorax. BONE:Within normal limits for the patient's age. OTHER FINDINGS:Normal. IMPRESSION: Opacity in the right inferior lung medially. Infiltrate versus mass. CT scan is recommended for fur ther evaluation. DATA REPOSITORY: RADIATION DOSE DELIVERED:
[2021-04-21 10:11] LABS: ALT 30 U/L (16-63); AST 17 U/L (15-37); Albumin 3.7 g/dL (3.4-5.0); Alkaline Phosphatase 56 U/L (46-116); Anion Gap 2.7 mmol/L (3-11); BUN 20 mg/dL (7-18); CO2 32.3 mmol/L (21.0-32.0); CREATININE 0.9 mg/dL (0.70-1.30); Calcium 8.9 mg/dL (8.5-10.1); Chloride 108 mmol/L (98-107); Glucose 109 mg/dL (74-106); NT-proBNP 68 pg/mL (<300); Potassium 4.4 mmol/L (3.5-5.1); Sodium 143 mmol/L (136-145); Total Protein 6.6 g/dL (6.4-8.2); Troponin I < 0.05 ng/mL (<0.06)
--- NOTE | 2021-04-21 11:30 | RT.EKG_ITS ---
APPROVED REPORT Exam: Resting ECG Reason for Exam: chest pain Patient Location: E HR:59 bpm ECG Measurements Heart Rate 59 AXIS WA 268 P 29 QRSd 103 QRS 63 QT 436 T 48 QTc 433 Conclusion Sinus bradycardia...rate< 60 Prolonged WA interval...WA >220, V-rate 50- 90 ST elevation, consider anterior injury...ST >0.15mV, V1-V5 sinus rhythm at 62, normal axis, ST elevations V1 and V2 present on prior 06/11/2020, does not meet S GERMAN criteria, nondiagnostic EKG
[2021-04-21 12:17] LABS: Troponin I < 0.05 ng/mL (<0.06)
--- NOTE | 2021-04-21 12:40 | DI.CT_ITS ---
Exam(s) CT CHEST W EXAM: CT CHEST W CLINICAL HISTORY: abnormal CXR TECHNIQUE: Imaging Protocol: Axial computed tomography images with coronal and sagittal reformatted images were created and reviewed CONTRAST MATERIAL: Intravenous: Omnipaque 350 Contrast volume:70 mL. COMPARISON: CR XR CHEST 2V PA LATERAL from 04/21/2021 CR XR CHEST 2V PA LATERAL from 04/21/2021 FINDINGS: Tracheobronchial tree: Patent where visualized. Mediastinum and Bobbi: No dominant adenopathy or fluid collection. Pulmonary parenchyma: No consolidation or dominant measurable mass. No architectural distortion. Ther e is a 0.4 cm noncalcified pulmonary nodule in the right middle lobe. There is dependent atelectasis in the lung bases. Pleura: No effusion or pneumothorax. Heart: The heart is not dilated. Mild coronary artery calcification. No pericardial effusion. Aorta: Thoracic aorta non-dilated. Mild atherosclerosis. Upper abdomen: Unremarkable. Lymph nodes: Within normal limits. Bones: Normal. Soft tissues: Unremarkable. IMPRESSION: 1. No finding in the right lung to correspond to the mammographic abnormality. 2. 0.4 cm noncalcified pulmonary nodule in the right middle lobe. For low risk patients, no follow-u p is recommended. For high risk patients (history of smoking or other risk factors), a follow-up exa mination in 12 months is recommended. 3. Results of this exam have been verbally communicated with provider. RADIATION DOSE DELIVERED: 683.92mGy.cm Total DLP DATA REPOSITORY: All CT scans at this facility are submitted to the National Radiology Data Registry (NRDR) Dose Index Registry (DIR) with the [employer] (A[employer]). RADIATION OPTIMIZATION: All CT scans at this facility use at least one of these dose optimization te chniques: automated exposure control; mA and/or kV adjustment per patient size (includes targeted exa ms where dose is matched to clinical indication); or iterative reconstruction.
[2021-04-21] MEDS: Omnipaque 350 MG/ML 100 ML BTL IV (13:06)
[2021-04-21 15:08] LABS: Source Nasal/Nares
--- NOTE | 2021-04-21 16:14 | W.PM.HP.N ---
Date of service: 04/21/21 Time of Service: 16:15 Assessment and Plan Assessment and plan (1) Chest pain: Status: Acute Assessment and plan: Concern for unstable angina. Monitor on tele, continue to trend troponins. Accepted in transfer to [facility] [place] for tomorrow under Dr Cardenas for a possible cardiac cath. (2) Nonsustained paroxysmal ventricular tachycardia: Status: Acute Assessment and plan: Start metoprolol with holding parameters. OBtain echo. I think this could be an indication of an unstable coronary lesion and I feel the patient would benefit from a cardiac cath on this admission. (3) CAD (coronary artery disease): Status: Chronic Assessment and plan: S/p MARY CARMEN to LAD in 2013. As above Qualifiers: Associated angina: without angina Coronary Disease-Associated Artery/Lesion type: [place] artery [place] vs. transplanted heart: [place] heart Qualified Code(s): I25.10 - Atherosclerotic heart disease of [place] coronary artery without angina pectoris (4) Essential hypertension: Status: Chronic Assessment and plan: not normally on medications. Start metoprolol with holding parameters (5) Hyperlipidemia: Status: Chronic Assessment and plan: Continue statin. Check fasting lipid panel. (6) Pulmonary nodule: Status: Acute Assessment and plan: Will need follow up CT in 12 months (7) DVT prophylaxis: Status: Acute Assessment and plan: SC lovenox (8) Discharge planning issues: Status: Acute Assessment and plan: Full code Accepted in transfer to [facility] [place] for tomorrow History of Present Illness History of Present Illness Chief Complaint: Chest discomfort Narrative: Mr Tom is a 76 year old male with PMHx of CAD s/p MARY CARMEN to LAD in 2013, as well as h/o mitral valve prolapse, hypertension, hyperlipidemia, who was awoken from sleep at 2-3 am this morning by left-sided nonradiating chest discomfort/pressure without dizziness, palpitations, nausea, or shortness of breath. He tried to meditation - this made it slightly better, but it didn't go away completely. This was slightly worse with exertion. He chewed his own aspirin prior to coming to the ED. In the ED, he had two negative troponins. His EKGs showed old ST elevations in V1-V2. While in the ED, he had an episode of asymptomatic Vtach (10 beats). His CXR showed a possible infiltrated, but CT imaging did not confirm this, showing only a 0.4 cm noncalcified pulmonary nodule in right middle lobe as well as atelectasis. Hospitalist admission was requested for further ischemic workup as well as management of the non-sustained Vtach. Dr Blanton recommends initiation of beta blockers. The patient is accepted at [facility] for a possible cardiac cath by Dr Cardenas. He still has chest discomfort at the time of my interview with him. Review of Systems All systems reviewed & are unremarkable except as noted in HPI and below PFSH Medical History Abnormal CT scan of head Actinic keratosis Allergic rhinitis CAD (coronary artery disease) (06/05/14) stent place 06/05 Cardiovascular disease Hx of colonic polyps Hydrocele Hypertension Mitral valve prolapse Presence of stent in LAD coronary artery Skin cancer Surgical History Colonoscopy - IV Sedation (01/06/12) DR. TIMMONS-2 TUBULAR ADENOMAS Colonoscopy - MAC (05/19/17) History of shoulder surgery left Stented coronary artery Family History (Updated 06/14/20 @ 08:28 by Randy Odonnell) Mother , FALL at age 92. Essential hypertension Heart disease Father , 86 Essential hypertension Heart disease Myocardial infarction Brother Diabetes Essential hypertension Hyperlipidemia Maternal Grandfather , 76 Heart disease Paternal Grandfather , 56 No problems noted. Maternal Grandmother , 86 Heart disease Paternal Grandmother , 86 Heart disease Son No problems noted. Son Depression Alcohol abuse Hypertension Social History Smoking/Tobacco Use Status: Never Second Hand Exposure: Yes Smoking risk assessment performed?: Yes Alcohol Intake: current Alcohol Intake frequency: 0-2 drinks per day Alcohol type: beer, wine and hard liquor Drug use: Never Substance use type: does not use Caregiver/Support person: No Household members: spouse Housing: house Communication Needs: None Do you need help understanding health information?: Never Pets and animals: Yes Pets and animals: cat(s) and dog(s) Sexually active: Yes Do you think of yourself as: straight/heterosexual Current gender identity: male What is your relationship status?: How often do you talk on the phone with friends or family?: once per week How often do you get together with friends or relatives?: once per week How often do you attend confucianism or catholic services?: decline to answer Do you belong to any clubs or organized social groups?: no Panel score (0-1 are the most socially isolated patients): 1 What type of physical activity do you participate in: running Duration: 30-45 minutes/day Frequency: 3-4 times per week Lelo/Zoroastrian: None Special lelo needs: No Seatbelt use: always Helmet use: Yes Helmet use: always Drive intox or ride w/intox dedicated truck driver: No Do you feel safe at home: Yes Do you feel safe in your relationship?: Yes Victim of physical abuse: No Victim of emotional abuse: No Victim of sexual abuse: No Would you like helpful sources: No Meds Allergies and Home Medications Allergies Allergy/AdvReac Type Severity Reaction Status Date / Time No Known Allergies Allergy Unverified 04/21/21 08:44 Home Medications Medication Instructions Recorded Confirmed Type aspirin [Aspir-81] 81 mg PO DAILY 06/30/13 04/21/21 History hajgxsiyobk-[id number]-ujo C-Mn 1 cap PO BID 06/30/13 04/21/21 History [Glucosamine 1500 Complex] lutein-zeaxanthin 1 cap PO DAILY 06/30/13 04/21/21 History calcium citrate-vitamin D3 1 ea PO DAILY 12/18/13 04/21/21 History [Calcium Citrate +] ascorbic acid-ascorbate sodium 500 mg PO DAILY 05/16/17 04/21/21 History vitamin E 400 mg PO DAILY 05/16/17 04/21/21 History Varicella-Zoster Ge/As01b/Pf 50 mcg IM ONCE #1 kit 02/21/18 04/21/21 Clinic [Shingrix Vial Kit] omega-3 fatty acids-vitamin E 1 cap PO DAILY 05/03/20 04/21/21 History atorvastatin [Lipitor] 40 mg PO DAILY 04/21/21 04/21/21 History Exam Narrative Exam Narrative: General: Pleasant elderly male who is fit, A&Ox3, appears comfortable in bed Neurological: A&Ox3, no focal deficits Psychiatric: Appropriate speech pattern/content Skin: Visible skin intact HEENT: Atraumatic, normocephalic, EOMI, MMM, Clear oropharynx, no submandibular or cervical lymphadenopathy, no goiter or JVD Cardiovascular: RRR, no m/r/g Lungs: CTAB Gastrointestinal: soft,nontender, nondistended Genitourinary: deferred Extremities: no edema BLE's, 1+ pedal pulses B Results Imaging Additional studies: CXR: Opacity in the right inferior lung medially. Infiltrate versus mass. CT scan is recommended for further evaluation. CTA chest: 1. No finding in the right lung to correspond to the mammographic abnormality. 2. 0.4 cm noncalcified pulmonary nodule in the right middle lobe. For low risk patients, no follow-up is recommended. For high risk patients (history of smoking or other risk factors), a follow-up examination in 12 months is recommended. 3. Results of this exam have been verbally communicated with provider. EKG #1: HR 62, NSR, ST elevations V1-V3, old, no obvious acute ischemia EKG #2: HR 59, NSR, possible slight elevations of ST segments in lateral leads , but not enough to be considered formal ST elevations Labs Result diagrams: 04/21/21 08:48 04/21/21 08:48 Labs: Laboratory Results - last 24 hr 04/21/21 04/21/21 04/21/21 08:48 08:48 08:48 WBC 6.98 RBC 4.39 Hgb 14.5 Hct 44.5 MCV 101.4 H MCH 33.0 MCHC 32.6 RDW 12.6 Plt Count 189 MPV 9.5 Immature Gran % 0.3 Neutrophils % 73.0 Lymphocytes % 11.7 Monocytes % 10.5 Eosinophils % 3.9 Basophils % 0.6 Nucleated RBC % 0 Absolute Neutrophils 5.10 Absolute Lymphocytes 0.82 L Absolute Monocytes 0.73 Absolute Eosinophils 0.27 Absolute Basophils 0.04 PT INR D-Dimer Sodium 143 Potassium 4.4 Chloride 108 H Carbon Dioxide 32.3 H Anion Gap 2.7 L BUN 20 H Creatinine 0.9 Estimated GFR/1.73 m2 >= 60.00 Glucose 109 H Calcium 8.9 Magnesium 2.0 Total Bilirubin 1.0 AST 17 ALT 30 Alkaline Phosphatase 56 Troponin I < 0.05 NT-Pro-B Natriuret Pep 68 Total Protein 6.6 Albumin 3.7 COVID-19 Source 04/21/21 04/21/21 04/21/21 08:48 11:45 14:50 WBC RBC Hgb Hct MCV MCH MCHC RDW Plt Count MPV Immature Gran % Neutrophils % Lymphocytes % Monocytes % Eosinophils % Basophils % Nucleated RBC % Absolute Neutrophils Absolute Lymphocytes Absolute Monocytes Absolute Eosinophils Absolute Basophils PT 9.9 INR 1.0 D-Dimer 346 Sodium Potassium Chloride Carbon Dioxide Anion Gap BUN Creatinine Estimated GFR/1.73 m2 Glucose Calcium Magnesium Total Bilirubin AST ALT Alkaline Phosphatase Troponin I < 0.05 NT-Pro-B Natriuret Pep Total Protein Albumin COVID-19 Source Nasal/Nares Last Vital Signs Temp 36.3 C L 04/21/21 14:59 Pulse 83 04/21/21 14:59 Resp 18 04/21/21 14:59 BP 145/81 H 04/21/21 14:59 Pulse Ox 98 04/21/21 14:59
[2021-04-21] MEDS: nitroGLYcerin 0.4 MG TAB SL ×2 (16:57→17:06)
[2021-04-21] MEDS: Mylanta Suspension 30 ML CUP PO (17:20)
[2021-04-21] MEDS: Acetaminophen 325 MG TAB PO (17:20)
[2021-04-21 18:40] LABS: COVID-19 PCR Negative (Negative)
[2021-04-21 18:45] LABS: Troponin I < 0.05 ng/mL (<0.06)
[2021-04-21] MEDS: Metoprolol 12.5 MG TAB PO (19:42)
[2021-04-21] MEDS: Normal Saline Flush 10 ML SYR IVP (19:42)
[2021-04-22 03:46] VITALS: BP 131/80; PULSE 71; RESP 18; TEMP 36; O2SAT 98
[2021-04-22 06:59] VITALS: PULSE 63
[2021-04-22 07:29] LABS: Abs Immature Grans 0.02 10^3/uL (0.0-0.06); Absolute Basophil Count 0.04 10^3/uL (0.0-0.2); Absolute Eosinophil Count 0.27 10^3/uL (0.0-0.7); Absolute Lymphocyte Count 1.26 10^3/uL (1.2-3.4); Absolute Monocyte Count 0.62 10^3/uL (0.1-0.8); Absolute Neutrophil Count 3.81 10^3/uL (1.2-6.7); Basophils % 0.7; Eosinophils % 4.5; HGB 14.8 g/dL (13.5-17.5); Immature Grans % 0.3; Lymphocytes % 20.9; MCH 32.7 pg (27.0-33.0); MCHC 32.9 % (32.0-36.0); MCV 99.6 fL (80-95); MPV 9.7 fL (8.0-11.0); Monocytes % 10.3; Neutrophils % 63.3; Nucleated RBC 0 %; Platelet Count 191 10^3/uL (130-400); RBC 4.52 10^6/uL (4.36-5.78); RDW 12.8 % (11.8-14.1); RDW-SD 46.7 fL; WBC 6.02 10^3/uL (4.4-10.8)
[2021-04-22] MEDS: Aspirin E.C. 81 MG TABEC PO (07:53)
[2021-04-22] MEDS: Omega-3 Fatty Acids 1000 MG CAP PO (07:53)
[2021-04-22 07:54] VITALS: BP 124/79; PULSE 59; RESP 17; TEMP 36.1; O2SAT 98
[2021-04-22] MEDS: Atorvastatin 40 MG TAB PO (07:55)
[2021-04-22] MEDS: Ascorbic Acid 500 MG TAB PO (07:55)
--- NOTE | 2021-04-22 08:00 | DI.US_ITS ---
APPROVED REPORT EXAM: Comprehensive 2D, Doppler, and color-flow Echocardiogram Patient Location: In-Patient Room/Bed: 212 Animation Director: Lucero Montilla RDCS (AE) Indications: V Tach, Chest pain, CAD Other Information Study Quality: Adequate Conclusion Left Ventricle : The left ventricle is normal size. The left ventricular systolic function is normal. The left ventricular ejection fraction is within the normal range. There is normal left ventricular wall thickness. There is normal LV segmental wall motion. The left ventricular diastolic function is normal. LVEF is 58%. Right Ventricle : The right ventricle is normal size. The right ventricular systolic function is norm al. The RVSP is 24 mmHg. Atria : The left atrium size is normal. The right atrium size is normal. Mitral Valve : Mild mitral regurgitation. Mitral regurgitation jet is eccentrically directed. No evid ence of mitral valve stenosis. Mild mitral valve prolapse. Great Vessels : The aortic root is normal in size. The ascending aorta is normal in size. Aortic arch is normal in caliber. IVC is normal in size and collapses >50% with inspiration. Please see remainder of study for further details. Wall motion Left Ventricle The left ventricle is normal size. The left ventricular systolic function is normal. The left ventric ular ejection fraction is within the normal range. There is normal left ventricular wall thickness. T here is normal LV segmental wall motion. The left ventricular diastolic function is normal. There is no ventricular septal defect visualized. LVEF is 58%. Right Ventricle The right ventricle is normal size. The right ventricular systolic function is normal. The RVSP is 24 mmHg. Atria The left atrium size is normal. The right atrium size is normal. The interatrial septum is intact wit h no evidence for an atrial septal defect. Aortic Valve The aortic valve is normal in structure. Aortic valve is trileaflet. There is no aortic valvular sten osis. Trace aortic regurgitation. Mitral Valve No evidence of mitral valve stenosis. Mild mitral regurgitation. Mitral regurgitation jet is eccentri sage directed. Mild mitral valve prolapse. Tricuspid Valve The tricuspid valve is normal in structure. There is no tricuspid valve stenosis. Trace to mild tricu spid regurgitation. Pulmonic Valve The pulmonary valve is normal in structure. There is no pulmonic valvular stenosis. Trace pulmonic re gurgitation. Great Vessels The aortic root is normal in size. The ascending aorta is normal in size. Aortic arch is normal in ca liber. IVC is normal in size and collapses >50% with inspiration. Pericardium There is no pericardial effusion. 2D Dimensions IVSD d PLAX 1.09 cm M: 0.6-1.2 LV Vol A2C d MOD 149.6 mL LVPW d PLAX 1.08 cm M: 0.6 - 1.2 LV Vol A4C d MOD 151.4 mL LVID d PLAX 5.08 cm M: 4.2 - 5.8 LA vol/ BSA A2C s A-L 28.2 mL/m2 LVDs 3.50 cm M: 2.5 - 4.0 LA vol/ BSA A4C s A-L 27.3 mL/m2 Ao Root d 3.44 cm M: 3.1 - 3.7 LA Vol/ BSA Biplane s A-L 29.3 mL/m2 RA Area A4C 15.96 cm2 LA Area A4C s MOD 18.73 cm2 RA Vol/ BSA A4C s A-L 23.2 mL/m2 LA Area A2C s MOD 18.00 cm2 Ao Asc Diam d 3.38 cm M: 2.6 - 3.4 LV EF A4C MOD 58.3 % LV EF Teichholz 58.1 % LV EF A2C MOD 58.0 % LVEF (Leigh's) 56.84 % M: 52 - 72 LV EF Biplane MOD 56.8 % LV Volume 113.45 mL M: 62 - 150 SV 85.58 mL LV Volume Index 57.58 mL/m2 M: 34 - 74 SV Index 43.39 mL/m2 LV Vol Biplane MOD 150.6 mL FS 30.75 % M-Mode TAPSE 2.09 cm (M/F) >1.7 LV Diastology MV E' medial 0.048 (>0.07 m/s) E/A Ratio 0.6 LV E/e MED 9.25 (<14) MV E Vmax 0.44 (0.4-1.3 m/s) MV E' lateral 0.049 (>0.1 m/s) MV A Vmax 0.70 (0.4-1.3 m/s) LV E/e LAT 9.05 (<14) MV E/A Ratio 0.60 MV E/E' medial 9.25 MV E/E' lateral 9.07 Aortic Valve LVOT Area 3.48 cm2 AoV Area Vmax 2.58 cm2 LVOT Vmax 0.79 m/s AoV Area/ BSA (Vmax) 1.31 cm2/m2 LVOT Mean [place]. 0.46 m/s LATASHA Mean [place]. 2.23 cm2 LVOT Peak Grad 2.5 mmHg LATASHA Mean [place]. Index 1.13 cm2/m2 LVOT Mean Grad 1.1 mmHg LVOT VTI 0.187 m LVOT Diam s 2.10 cm AoV Vmax 1.07 m/s Velocity Ratio 0.73 AoV Mean [place]. 0.73 m/s AoV Peak Grad 4.6 mmHg LVOT SV 64.87 mL AoV Mean Grad 2.4 mmHg AoV VTI 0.231 m AoV Area VTI 2.81 cm2 AoV Area/ BSA (VTI) 1.42 cm/m2 Mitral Valve MV DT 445 (160-240 msec) MR Vmax 5.94 m/s MV PHT 129 msec MR VTI 2.063 m MV Area PHT 1.70 cm2 MR Peak Grad 141.1 mmHg MV VTI 0.283 m MR Mean Grad 99.3 mmHg MV VTI Annulus 0.298 m MR PISA Radius 0.46 cm MV Area VTI 2.42 (4.0-6.0 cm2) MR EROA 0.08 cm2 MR Aliasing Velocity 0.35 m/s MR PISA 1.35 cm2 Pulmonary Valve PV Vmax 1.36 (0.5-1.5 m/s) RVOT Peak Gr. 1.87 mmHg PV Peak Grad 7.4 mmHg RVOT Mean Gr. 0.85 mmHg PV Mean Grad 3.2 mmHg RVOT VTI 0.162 m PV VTI 0.249 m RVOT Vmax 0.68 m/s Tricuspid Valve TR Peak Grad 20.9 mmHg TR Vmax 2.29 m/s RA Pressure 3.00 mmHg RVSP (TR) 23.9 mmHg
[2021-04-22 08:38] LABS: Anion Gap 8.9 mmol/L (3-11); BUN 18 mg/dL (7-18); CO2 30.1 mmol/L (21.0-32.0); Calcium 8.8 mg/dL (8.5-10.1); Calculated LDL 51 mg/dL (<100); Chloride 106 mmol/L (98-107); Cholesterol 155 mg/dL (<200); Glucose 103 mg/dL (74-106); HDL Cholesterol 88 mg/dL (40-60); Potassium 4.3 mmol/L (3.5-5.1); Sodium 145 mmol/L (136-145); Triglyceride 83 mg/dL (<150)
[2021-04-22 08:55] LABS: Magnesium 2.2 mg/dL (1.8-2.4)
[2021-04-22] MEDS: Vitamin E 400 UNITS CAP PO (10:52)
[2021-04-22 11:15] VITALS: BP 154/81; PULSE 66; RESP 17; TEMP 35.4; O2SAT 98
--- NOTE | 2021-04-22 12:46 | CMPROGNOTE_ITS ---
Care Management Progress Note Per MD: Monitor on tele, continue to trend troponins. Accepted in transfer to [facility] [place] under Dr. Cardenas for a possible cardiac cath. Anticipate he will transfer via EMS coordinated by Nursing Motor Vehicle Emissions Inspector.
--- NOTE | 2021-04-22 12:46 | PDOC.CMPRO ---
Care Management Progress Note Per MD: Monitor on tele, continue to trend troponins. Accepted in transfer to [facility] [place] cardiology under Dr. Cardenas for a possible cardiac cath. Anticipate he will transfer via EMS coordinated by Nursing Hospice Art Therapist.
[2021-04-22] MEDS: Metoprolol 12.5 MG TAB PO (12:55)
--- NOTE | 2021-04-22 13:44 | CHAPLAIN ---
Jose F was sitting up in a chair in his room, listening to something on his phone, when I visited. He told me he was meditating and then agreed that he'd like to continue. I explained my role briefly and let him know how to reach me.
[2021-04-22 15:45] VITALS: BP 108/69; PULSE 58; RESP 18; TEMP 36.4; O2SAT 97
--- NOTE | 2021-04-22 16:51 | DSE_ITS ---
Date of service: 04/22/21 Time of Service: 16:52 DS: Diagnosis Discharge Diagnosis (1) Chest pain: Status: Acute (2) Nonsustained paroxysmal ventricular tachycardia: Status: Acute (3) CAD (coronary artery disease): Status: Chronic (4) Essential hypertension: Status: Chronic (5) Hyperlipidemia: Status: Chronic (6) Pulmonary nodule: Status: Acute (7) COVID-19 ruled out by laboratory testing: Status: Ruled-out Discharge Plan Disposition Patient Disposition: [facility] Condition: Fair Discharge Details Reason For Visit: Unstable Angina,Nonsustained Vtach Admit Date/Time: 04/21/21 14:11 Admit Provider: Beronica Robles Attending Provider: Beronica Robles Primary Care Provider: Sunita Haynes [facility] Course Hospital Course: Mr Tom is a 76 year old male with PMHx of CAD s/p MARY CARMEN [place] [facility] as well as h/o hypertension, hyperlipidemia, and mitral valve prolapse, who was a patient on [facility] hospitalist service while awaiting a bed at [facility] from 04/21/21 until 04/22/21 for suspected unstable angina with chest pain at rest. Additionally, the patient had an episode of non-sustained VTach in the ED which was asymptomatic, but the conjunction of the two has further elevated suspicion of an unstable coronary lesion. He had negative troponins x 3. His EKG showed old ST elevations in VT-V3. The patient's response to nitroglycerin was not clear. The patient underwent an echocardiogram, which revealed LVEF of 58%, nml LV wall motion. RVSP was 24 mmHg. Mitral valve prolapse was again seen. The patient was accepted at [facility] [place] Dr Cardenas of Cardiology for further ischemic evaluation (high risk stress test vs cardiac cath). He is in agreement with transfer and is stable for transfer. Incidentally followed pulmonary nodule will need outpatient follow up in 12 months - defer to PCP. Care for patient as well as completion of his discharge summary on day of transfer took 45 minutes. Please, look at MAR for list of inpatient medications. The list below reflects outpatient prescriptions. Home Meds and New Rx's Prescriptions: No Action calcium citrate-vitamin D3 [Calcium Citrate +] 1 EACH tablet 1 ea PO DAILY RF: 0 Varicella-Zoster Ge/As01b/Pf [Shingrix Vial Kit] 50 MCG INJ 50 mcg IM ONCE Qty: 1 RF: 1 aspirin [Aspir-81] 81 MG tablet,delayed release (DR/EC) 81 mg PO DAILY RF: 0 lvsmmtfjrzf-pmmgljghp-poo C-Mn [Glucosamine 1500 Complex] 1 EACH capsule 1 cap PO BID RF: 0 lutein-zeaxanthin 1 EACH capsule 1 cap PO DAILY RF: 0 vitamin E 400 UNIT capsule 400 mg PO DAILY RF: 0 ascorbic acid-ascorbate sodium 500 MG wafer 500 mg PO DAILY RF: 0 atorvastatin [Lipitor] 40 mg tablet 40 mg PO DAILY RF: 0 omega-3 fatty acids-vitamin E 1,000 mg Capsule 1 cap PO DAILY RF: 0 Discharge Instructions Activity:: Activity as Tolerated Diet:: heart healthy diet Discharge Orders Discharge Orders: Discharge Order (Routine); Ordered 04/22/21 Ordered By: Beronica Robles DS: Summary Time Spent with Patient providing and/or coordinating discharge services: Greater than 30 minutes Status at Discharge Functional status at discharge: independent ambulation Overall status at discharge: patient is back to baseline Mental Status: mental status grossly normal Speech and Movement: speech and movement normal Mood: congruent mood Affect: normal affect Exam Narrative Exam Narrative: General: Pleasant elderly male who is fit, A&Ox3, appears comfortable in bed Neurological: A&Ox3, no focal deficits Psychiatric: Appropriate speech pattern/content Skin: Visible skin intact HEENT: Atraumatic, normocephalic, EOMI, MMM, Clear oropharynx, no submandibular or cervical lymphadenopathy, no goiter or JVD Cardiovascular: RRR, no m/r/g Lungs: CTAB Gastrointestinal: soft,nontender, nondistended Genitourinary: deferred Extremities: no edema BLE's, 1+ pedal pulses B Psych Mental Status: mental status grossly normal Speech and Movement: speech and movement normal Mood: congruent mood Affect: normal affect DS: Data Vitals/I&O Vitals and I&O: Vital Signs Temperature 36.4 C L 04/22/21 15:45 Temperature Source Tympanic 04/22/21 15:45 Pulse 58 L 04/22/21 15:45 Pulse Rhythm Regular 04/22/21 08:00 Pulse 94 H 04/21/21 14:50 Respiratory Rate 18 04/22/21 15:45 Respiratory Effort 04/22/21 08:00 Respiratory Depth Normal 04/22/21 08:00 Respiratory Pattern Normal 04/22/21 08:00 Blood Pressure 108/69 04/22/21 15:45 Blood Pressure Mean 111 04/21/21 14:47 Blood Pressure Position Sitting 04/21/21 08:41 Pulse Oximetry 97 04/22/21 15:45 Oxygen Delivery Method Room Air 04/22/21 15:45 Oxygen Flow Rate 0 04/22/21 15:45 Pain Level 0 04/22/21 15:45 Comment 04/21/21 17:34 Intake & Output 04/21/21 04/22/21 04/22/21 23:59 11:59 23:59 Intake Total 900 / 910 110 / 110 Output Total 350 / 350 1700 / 1700 Balance 550 / 560 -1590 / -1590 Weight 79.379 kg 78.29 kg Intake: IV 10 Oral 890 / 890 100 / 100 Output: Urine 350 / 350 1700 / 1700 Other: Urine Color Pale Light Ebatriz Urine Appearance Clear Clear Urine Odor None None Comment Per pt. report, void x1 in the toilet while in the ER. t Voiding Methods Toilet Toilet Data Completed and Pending Completed studies during hospitalization [Text1]: Echo: Left Ventricle : The left ventricle is normal size. The left ventricular systolic function is normal. The left ventricular ejection fraction is within the normal range. There is normal left ventricular wall thickness. There is normal LV segmental wall motion. The left ventricular diastolic function is normal. LVEF is 58%. Right Ventricle : The right ventricle is normal size. The right ventricular systolic function is normal. The RVSP is 24 mmHg. Atria : The left atrium size is normal. The right atrium size is normal. Mitral Valve : Mild mitral regurgitation. Mitral regurgitation jet is eccentrically directed. No evidence of mitral valve stenosis. Mild mitral valve prolapse. Great Vessels : The aortic root is normal in size. The ascending aorta is normal in size. Aortic arch is normal in caliber. IVC is normal in size and collapses >50% with inspiration. Please see remainder of study for further details. CTA chest: 1. No finding in the right lung to correspond to the mammographic abnormality. 2. 0.4 cm noncalcified pulmonary nodule in the right middle lobe. For low risk patients, no follow-up is recommended. For high risk patients (history of smoking or other risk factors), a follow-up examination in 12 months is recommended. 3. Results of this exam have been verbally communicated with provider. CXR: Opacity in the right inferior lung medially. Infiltrate versus mass. CT scan is recommended for further evaluation. Labs on day of discharge: Labs from last 24 hours 04/22/21 04/22/21 04/22/21 06:56 06:56 06:56 WBC 6.02 RBC 4.52 Hgb 14.8 Hct 45.0 MCV 99.6 H MCH 32.7 MCHC 32.9 RDW 12.8 Plt Count 191 MPV 9.7 Immature Gran % 0.3 Neutrophils % 63.3 Lymphocytes % 20.9 Monocytes % 10.3 Eosinophils % 4.5 Basophils % 0.7 Nucleated RBC % 0 Absolute Neutrophils 3.81 Absolute Lymphocytes 1.26 Absolute Monocytes 0.62 Absolute Eosinophils 0.27 Absolute Basophils 0.04 Sodium 145 Potassium 4.3 Chloride 106 Carbon Dioxide 30.1 Anion Gap 8.9 BUN 18 Creatinine 1.0 Estimated GFR/1.73 m2 >= 60.00 Glucose 103 Calcium 8.8 Magnesium 2.2 Troponin I Triglycerides 83 Total Cholesterol 155 LDL Cholesterol, Calc 51 HDL Cholesterol 88 SARS-CoV-2 (PCR) 04/21/21 04/21/21 18:05 14:50 WBC RBC Hgb Hct MCV MCH MCHC RDW Plt Count MPV Immature Gran % Neutrophils % Lymphocytes % Monocytes % Eosinophils % Basophils % Nucleated RBC % Absolute Neutrophils Absolute Lymphocytes Absolute Monocytes Absolute Eosinophils Absolute Basophils Sodium Potassium Chloride Carbon Dioxide Anion Gap BUN Creatinine Estimated GFR/1.73 m2 Glucose Calcium Magnesium Troponin I < 0.05 Triglycerides Total Cholesterol LDL Cholesterol, Calc HDL Cholesterol SARS-CoV-2 (PCR) Negative [facility] Medical History Abnormal CT scan of head Actinic keratosis Allergic rhinitis CAD (coronary artery disease) (06/05/14) stent place 06/05 Cardiovascular disease Hx of colonic polyps Hydrocele Hypertension Mitral valve prolapse Presence of stent in LAD coronary artery Skin cancer Surgical History Colonoscopy - IV Sedation (01/06/12) DR. TIMMONS-Kristopher TUBULAR ADENOMAS Colonoscopy - MAC (05/19/17) History of shoulder surgery left Stented coronary artery Family History (Updated 06/14/20 @ 08:28 by Randy Odonnell) Mother , FALL at age 92. Essential hypertension Heart disease Father , 86 Essential hypertension Heart disease Myocardial infarction Brother Diabetes Essential hypertension Hyperlipidemia Maternal Grandfather , 76 Heart disease Paternal Grandfather , 56 No problems noted. Maternal Grandmother , 86 Heart disease Paternal Grandmother , 86 Heart disease Son No problems noted. Son Depression Alcohol abuse Hypertension Social History Smoking/Tobacco Use Status: Never Second Hand Exposure: Yes Smoking risk assessment performed?: Yes Alcohol Intake: current Alcohol Intake frequency: 0-2 drinks per day Alcohol type: beer, wine and hard liquor Drug use: Never Substance use type: does not use Caregiver/Support person: No Household members: spouse Housing: house Communication Needs: None Do you need help understanding health information?: Never Pets and animals: Yes Pets and animals: cat(s) and dog(s) Sexually active: Yes Do you think of yourself as: straight/heterosexual Current gender identity: male What is your relationship status?: How often do you talk on the phone with friends or family?: once per week How often do you get together with friends or relatives?: once per week How often do you attend denominational or orthodoxy services?: decline to answer Do you belong to any clubs or organized social groups?: no Panel score (0-1 are the most socially isolated patients): 1 What type of physical activity do you participate in: running Duration: 30-45 minutes/day Frequency: 3-4 times per week Lelo/Congregation: None Special lelo needs: No Seatbelt use: always Helmet use: Yes Helmet use: always Drive intox or ride w/intox car driver: No Do you feel safe at home: Yes Do you feel safe in your relationship?: Yes Victim of physical abuse: No Victim of emotional abuse: No Victim of sexual abuse: No Would you like helpful sources: No
--- NOTE | 2021-04-22 18:12 | NUR.NOTE ---
Nursing Note: Report called to Candy at [facility]. Pt left facility at 1800 via ambulance.
== END 2021-04-22 17:57 | disposition short-term general hospital (02) | DRG 303 ==
LOC: ER 15:00 → MS 15:15
PROVIDERS: Admitting Provider Internal Medicine; Emergency Provider Student in an Organized Health Care Education/Training Program; PCP Family Medicine; Visit Provider Internal Medicine
DX: I25.110 Atherosclerotic heart disease of native coronary artery with unstable angina pectoris (principal); I47.2 Ventricular tachycardia; Z95.5 Presence of coronary angioplasty implant and graft; I10 Essential (primary) hypertension; I34.0 Nonrheumatic mitral (valve) insufficiency; E78.5 Hyperlipidemia, unspecified; R91.1 Solitary pulmonary nodule; Z20.822 Contact with and (suspected) exposure to COVID-19
CPT/HCPCS: 36415; 80048; 80053; 80061; 87635; 93005; 93306; 99285; 71046; 71260; 83735; 83880; 84484; 85025; 85379; 85610; 93010; 99217; 99220; 99223; 99239; J3490

== ENCOUNTER 2022-02-19 08:54 | Outpatient (REF) | payer MEDICARE, SELFPAY ==
--- NOTE | 2022-02-19 07:45 | SKI_PTH ---
PATIENT: Jose F Tom LOC: [facility] U#:[id number] AGE/SX: 77/M ROOM: RE02/19/[address]: Sunita Haynes MD, DC : 1945 BED: DIS: 02/19/2022 SPEC #: [id number] RECD: 02/19/22 12:48 STATUS: MITA RERodney #: [id number] DAVID: 02/19/22 07:[address]: Sunita Haynes DEPT: Surgical Specimen RECD BY: Rosina Chery Tissues: 1 - SKIN BIOPSY(SHAVE/PUNCH) Procedures: SKIN LEVEL 4 Comments: [id number]
== END 2022-02-19 08:55 | disposition home or self-care (01) ==
LOC: LBN 08:54
PROVIDERS: PCP Family Medicine; Visit Provider Family Medicine
DX: L57.0 Actinic keratosis (principal); L98.9 Disorder of the skin and subcutaneous tissue, unspecified
CPT/HCPCS: 88305

== ENCOUNTER → 2022-04-15 01:27 | Outpatient (CLI) | payer MEDICARE, SELFPAY ==
--- NOTE | 2022-04-15 11:15 | DI.RAD_ITS ---
Exam(s) XR HIP LT COMPLETE AP PELVIS EXAM: XR HIP LT COMPLETE AP PELVIS CLINICAL HISTORY: hip pain, M25.559. TECHNIQUE: 2D digital imaging was performed. COMPARISON: No exams were available for comparison FINDINGS: Two views No evidence of pelvic nor hip fracture. SI joints appear unremarkable. Bone density normal. Additional lateral view of the left hip does not exhibit joint space narrowing nor osteophytes nor kiet ny excrescence on the femoral neck. IMPRESSION: No significant osseous findings in the pelvis and hips. DATA REPOSITORY: RADIATION DOSE DELIVERED:
--- NOTE | 2022-04-15 11:21 | DI.RAD_ITS ---
Exam(s) XR KNEE LT 3V AP,LAT,ELOY EXAM: XR KNEE LT 3V AP,LAT,ELOY CLINICAL HISTORY: knee pain,M25.569. TECHNIQUE: 2D digital imaging was performed. COMPARISON: CR RIGHT KNEE 3 VIEWS from 01/25/2015 FINDINGS: Four views No evidence of fracture nor joint effusion. No joint space narrowing. Bone density normal. No osse ous lesions. On the lateral view there is slight increased density in the quadriceps fat pad just above the patell a, of questionable significance. IMPRESSION: Minimal degenerative changes. No osteochondral defects. No joint effusion. Other findings as above. DATA REPOSITORY: RADIATION DOSE DELIVERED:
== END ==
PROVIDERS: PCP Family Medicine; Visit Provider Family Medicine
DX: M25.552 Pain in left hip (principal); M25.562 Pain in left knee
CPT/HCPCS: 73562; 73502

== ENCOUNTER → 2022-06-17 10:00 | Outpatient (BNVA) | payer MEDICARE, SELFPAY | PROVIDERS: PCP Family Medicine; Referring Provider Family Medicine; Visit Provider Surgery | DX: C44.612 Basal cell carcinoma of skin of right upper limb, including shoulder (principal) | CPT/HCPCS: 11602 ==

== ENCOUNTER 2022-06-17 10:24 | Outpatient (REF) | payer MEDICARE, SELFPAY ==
--- NOTE | 2022-06-17 10:45 | SKI_PTH ---
PATIENT: Jose F Tom LOC: [facility] U#:[id number] AGE/SX: 77/M ROOM: RE06/17/[address]: Anton Madison MD : 1945 BED: DIS: 06/17/2022 SPEC #: [id number] RECD: 06/17/22 13:11 STATUS: MITA RERodney #: [id number] DAVID: 06/17/22 10:[address]: Anton Madison DEPT: Surgical Specimen RECD BY: Rosina Chery ENTERED: 06/17/22 13:11 SP TYPE: SKI OTHR DR: Sunita Haynes MD, DC Tissues: 1 - SKIN BIOPSY(SHAVE/PUNCH) Procedures: SKIN LEVEL 4 Comments: [id number]
== END 2022-06-17 10:25 | disposition home or self-care (01) ==
LOC: LBN 10:24
PROVIDERS: PCP Family Medicine; Visit Provider Surgery
DX: C44.612 Basal cell carcinoma of skin of right upper limb, including shoulder (principal)
CPT/HCPCS: 88305

== ENCOUNTER → 2022-06-29 09:57 | Outpatient (BNVA) | payer MEDICARE, SELFPAY | PROVIDERS: PCP Family Medicine; Referring Provider Family Medicine; Visit Provider Surgery | DX: Z48.02 Encounter for removal of sutures (principal); C44.91 Basal cell carcinoma of skin, unspecified ==

== ENCOUNTER 2022-08-05 02:57 | Outpatient (CLI) | payer MEDICARE, SELFPAY ==
[2022-08-05 12:47] LABS: ALT 32 U/L (16-63); AST 26 U/L (15-37); Albumin 3.9 g/dL (3.4-5.0); Alkaline Phosphatase 68 U/L (46-116); BUN 21 mg/dL (7-18); Bilirubin, Total 1.8 mg/dL (0.2-1.0); Calculated LDL 47 mg/dL (<100); Chloride 105 mmol/L (98-107); Cholesterol 137 mg/dL (<200); Estimated GFR 77.52 (mL/min/1.73m2); Glucose 88 mg/dL (74-106); HDL Cholesterol 81 mg/dL (40-60); Potassium 3.9 mmol/L (3.5-5.1); Sodium 142 mmol/L (136-145); Total Protein 6.9 g/dL (6.4-8.2); Triglyceride 46 mg/dL (<150)
[2022-08-05 23:20] LABS: PSA, Diagnostic 1.8 ng/mL (<=6.5)
== END 2022-08-05 02:58 | disposition home or self-care (01) ==
LOC: LOS 03:02
PROVIDERS: PCP Family Medicine; Visit Provider Family Medicine
DX: I10 Essential (primary) hypertension (principal); N40.0 Benign prostatic hyperplasia without lower urinary tract symptoms
CPT/HCPCS: 36415; 80053; 80061; 84153

== ENCOUNTER → 2023-04-29 13:06 | Outpatient (BNVA) | payer MEDICARE, SELFPAY | PROVIDERS: PCP Family Medicine; Referring Provider Family Medicine; Visit Provider Physical Therapy Assistant | DX: Z12.11 Encounter for screening for malignant neoplasm of colon (principal); Z86.010 Personal history of colon polyps ==

== ENCOUNTER 2023-05-21 08:12 | Day surgery (SDC) | payer MEDICARE, SELFPAY ==
--- NOTE | 2023-05-20 21:40 | W.COLOREPORT ---
Date of service: 05/21/23 Time of Service: 09:48 Colonoscopy Report Date of procedure: 05/21/23 Pre-op diagnosis general: Villous adenoma of sigmoid colon Post-op diagnosis procedure note: other (Polyps/pandiverticular disease/external hemorrhoid) Surgeon: Natalia Zuñiga Anesthesia Type: General:No Airway Pathology: other Complications: None Disposition: same day Prep: Miralax/Dulcolax Retraction Time: 16 Procedure Description: After informed consent was obtained the patient was taken to the procedure room and placed in a left decubitous position. Monitors were applied and a time out was done. The patients name, date of , procedure, allergies to medications and metal in their body was reviewed. The patient was then sedated. Once sedated and comfortable a rectal exam was done. External exam was normal except for a nonthrombosed external hemorrhoid at the 12 o'clock position . Internal exam revealed a normal sphincter tone and no palpable masses. The prostate normal The scope was then introduced and retrofelexed. no internal hemorrhoids were identified. The scope was then advanced to the cecum without BBPS difficulty. The TI and appendiceal orifice were identified. The prep was BBPS 3 in all segments for a total of 9. The scope was then slowly retracted over 16 minutes back into the rectum. Polyps were removed at 90 cm. It is a flat 5 mm polyp that is removed with a cold biting forcep. All specimen is retrieved and no bleeding is noted. He does have pandiverticular disease that carry all the way over from the cecum to the sigmoid colon. There are small mouth in size and number. There are no signs of active bleeding or infection.. The scope was removed and the patient was woken up and taken back to Same day surgery in stable condition. The patient tolerated the procedure well and there were no immediate complications. Follow up: The patient should follow up in 5 years, pathology pending, unless they develop changes in bowel habits or other new gastrointestinal complaints.
--- NOTE | 2023-05-20 21:41 | PDOC.DSDIS_ITS ---
Date of service: 05/21/23 Time of Service: 09:52 Discharge Plan Disposition Patient Disposition: Home Condition: Improving Discharge Details Reason For Visit: Colonoscopy Attending Provider: Natalia Zuñiga Primary Care Provider: Sunita Haynes Home Meds and New Rx's Prescriptions: Continued hydrochlorothiazide 12.5 mg capsule 12.5 mg PO QAM Qty: 90 4RF polyethylene glycol 3350 17 gram/dose powder 17 g PO ONCE Qty: 238 0RF Rx Instructions: Take per colonoscopy instructions provided by ordering providers office calcium citrate-vitamin D3 [Calcium Citrate +] 1 EACH tablet 1 ea PO DAILY Varicella-Zoster Ge/As01b/Pf [Shingrix Vial Kit] 50 MCG INJ 50 mcg IM ONCE Qty: 1 1RF Rx Instructions: second dose 2-6 months atorvastatin [Lipitor] 40 mg tablet 40 mg PO DAILY Qty: 90 5RF metoprolol tartrate 25 mg tablet 25 mg PO BID Qty: 180 5RF aspirin [Aspir-81] 81 MG tablet,delayed release (DR/EC) 81 mg PO DAILY cclwnojlkju-xdrxujghp-xtt C-Mn [Glucosamine 1500 Complex] 1 EACH capsule 1 cap PO BID lutein-zeaxanthin 1 EACH capsule 1 cap PO DAILY vitamin E 400 UNIT capsule 400 mg PO DAILY ascorbic acid-ascorbate sodium 500 MG wafer 500 mg PO DAILY omega-3 fatty acids-vitamin E 1,000 mg Capsule 1 cap PO DAILY Discontinued bisacodyl [Dulcolax (bisacodyl)] 5 mg tablet,delayed release (DR/EC) 5 mg PO ONCE Qty: 4 0RF Rx Instructions: Take per colonoscopy instructions provided by ordering providers office Discharge Instructions Additional Instructions: DSU Colonoscopy Post- Op Instructions Instructions for Everyone who is given Anesthesia: For your safety, please do the following for the next t wenty-four (24) hours: *Do Not operate a motor vehicle (car, truck, motorcycle, etc.) *Do Not drink alcoholic beverages or use any recreational drugs for the first 24 hours or while taking pain medications. The medications in your body may have a reaction that can be dangerous. *Do Not make any important decisions or sign any important papers. Findings: Hemorrhoids diverticula-make sure you are moving your bowels on a regular basis and you are not straining to go to the bathroom. If you are having some irregularity or straining then we recommend you start a fiber product daily such as Metamucil. polyp Follow up: My office will send a letter in 2 to 3 weeks time detailing when we want to repeat the colonoscopy, most likely 5 years time. 1. No lifting over 20 pounds or strenuous activity for the first 24 hours after your procedure. After 24 hours there are no restrictions on your activity but you may feel fatigued for a few days. 2. After you arrive home you may have a light meal and return to your normal diet as you can tolerate it without feeling sick to your stomach. 3. You may have a bloated, gaseous feeling in your belly (abdomen) after a colonoscopy. Passing gas and belching will help. Walking or lying down on your left side with your knees flexed may relieve the discomfort. Call the office at [phone] (Office) or [phone] (Hospital) right away if you notice any of the following: a.Vomiting of blood or ?coffee ground stools?. b.Rectal bleeding 1Tbsp, blood clots or continuous bleeding. c.Severe belly (abdominal) pain. d.A hard distended belly (abdomen) and an inability to pass gas. 4. Please don?t expect to have a normal BM (bowel movement) for 2-3 days after your procedure. 5. If there are questions regarding the findings of your procedure, please contact your doctor 6. If you are unable to contact your doctor with a problem, contact the hospital at [phone]. 7. Continue all your regular medications unless directed otherwise. I understand the above instructions and have no questions. Signature of Patient or Adult Escort Name of Responsible Adult Escort Signature of Nurse Date/Time Activity:: See above Diet:: See above Discharge Orders Discharge Orders: Discharge Order (Routine); Ordered 05/21/23 Ordered By: Natalia Zuñiga DS: Diagnosis Discharge Diagnosis (1) Tubulovillous adenoma of colon: Status: Acute Asessment and Plan: The patient is seen and examined after their colonoscopy.? The patient has been able to pass gas.? They are not having abdominal pain.? They have been able to tolerate liquids and a snack.? They do not have any nausea or vomiting.? They are not having any chest pain or shortness of breath.??? They are not having any rectal bleeding. Their vital signs have been stable-see nursing notes. We discussed findings during their colonoscopy, and any biopsies that were done/polyps that were removed. The patient will be sent a letter with any biopsy results, and when to repeat the colonoscopy.-see discharge instructions. Patient was given explicit instructions to follow-up regarding colonoscopy-refer to discharge instructions.? We reviewed resumption of medications. Patient verbalized understanding and discharged in stable and satisfactory condition- See nursing notes. (2) Pancolonic diverticulosis: Status: Acute (3) Malignant neoplasm of skin: Status: Acute (4) Hydrocele: Status: Acute (5) Essential hypertension: Status: Chronic (6) CAD (coronary artery disease): Status: Chronic (7) Allergic rhinitis: Status: Acute (8) Presence of stent in LAD coronary artery: Status: Acute (9) Mitral valve prolapse: Status: Acute (10) BPH (benign prostatic hyperplasia): Status: Chronic (11) Hyperlipidemia: Status: Chronic (12) Nonsustained paroxysmal ventricular tachycardia: Status: Acute (13) BPH (benign prostatic hyperplasia): Status: Chronic (14) Hypertension: (15) Cardiovascular disease: (16) Allergic rhinitis:
[2023-05-21 08:40] VITALS: BP 148/96; PULSE 55; RESP 16; TEMP 36.2; O2SAT 100
[2023-05-21] MEDS: Lactated Ringers 1,000 ML 80 ML IV (08:50)
--- NOTE | 2023-05-21 08:54 | ANES.PREOP_ITS ---
General Info Date of Service Date Performed: 05/21/23 Height: 5 ft 10 in Weight: 78.9 kg Body Mass Index (BMI): 24.9 Surgical Procedure: Operation Date: 05/21/23 09:50 Proposed Procedure Side Surgeon devin Zuñiga, DO Meds Allergies and Home Medications Allergies Allergy/AdvReac Type Severity Reaction Status Date / Time No Known Allergies Allergy Unverified 05/21/23 08:33 Home Medication Medication Instructions Recorded aspirin 81 mg tablet,delayed 81 mg PO DAILY 06/30/13 release (Aspir-) nlvgpkryjpx-vbsvtqqgk-jvy C-Mn 500 1 cap PO BID 06/30/13 mg-400 mg capsule (Glucosamine 1) lutein 40 mg-zeaxanthin 1,600 mcg 1 cap PO DAILY 06/30/13 capsule calcium citrate 315 mg-vitamin D3 1 ea PO DAILY 12/18/13 5 mcg (200 unit) tablet (Calcium Citrate +) ascorbic acid-ascorbate sodium 500 mg PO DAILY 05/16/17 (vitamin C) 500 mg oral wafer vitamin E 268 mg (400 unit) capsule 400 mg PO DAILY 05/16/17 omega-3 fatty acids-vitamin E 1 cap PO DAILY 05/03/20 1,000 mg capsule atorvastatin 40 mg tablet (Lipitor) 40 mg PO DAILY #90 tabs 06/29/22 hydrochlorothiazide 12.5 mg capsule 12.5 mg PO QAM #90 caps 07/28/22 bisacodyl 5 mg tablet,delayed 5 mg PO ONCE #4 tabs 04/29/23 release (Dulcolax (bisacodyl)) polyethylene glycol 3350 17 17 g PO ONCE #238 grams 04/29/23 gram/dose oral powder metoprolol tartrate 25 mg tablet 25 mg PO BID #180 tabs 05/03/23 Current Visit Medications: Current Medications Generic Name Dose Route Start Last Admin Trade Name Freq PRN Reason Stop Dose Admin Ringer's Solution 1,000 mls @ 80 mls/hr 05/21/23 06:00 IV 05/21/23 23:59 INFUSION [facility] IV Miscellaneous Supplies 1 each 05/21/23 06:00 Iv Access IV 05/21/23 23:59 DIRECTED [facility] Ondansetron HCl 4 mg 05/21/23 04:21 Ondansetron 4 Mg/2 Ml Vial IVP 06/20/23 04:20 Q4H PRN PRN Nausea / Vomiting Sodium Chloride 0 ml 05/21/23 06:00 Normal Saline Flush 10 Ml Syr IV 05/21/23 23:59 PRN PRN Sodium Chloride 0 ml 05/21/23 06:00 Normal Saline 10 Ml Vial IJ 05/21/23 23:59 DIRECTED PRN Sterile Water 0 ml 05/21/23 06:00 Water,Injection,Sterile 10 Ml Vial IJ 05/21/23 23:59 DIRECTED PRN PFSH Active Problems Active Problems: Problem Status Onset Code Conjunctivitis H10.9 Tubular adenoma D36.9 Pancolonic diverticulosis 05/19/17 K57.30 Malignant neoplasm of skin C44.90 Knee pain 07/22/96 M25.569 Hydrocele N43.3 Essential hypertension 06/19/13 I10 Epicondylitis Shoulder dislocation S43.006A Closed fracture of radius S52.90XA Chest pain R07.9 CAD (coronary artery disease) 06/05/14 I25.10 Allergic rhinitis J30.9 Actinic keratosis L57.0 Presence of stent in LAD coronary artery Z95.5 Mitral valve prolapse I34.1 BPH (benign prostatic hyperplasia) N40.[address] of the head R93.0 Tubular adenoma of colon D12.6 Tubulovillous adenoma of colon D12.6 BPH (benign prostatic hyperplasia) N40.0 Nonsustained paroxysmal ventricular tachycardia I47.2 Hyperlipidemia E78.5 Bursitis due to overuse M70.80 Hip pain M25.559 Knee pain M25.569 Actinic keratoses L57.0 Basal cell carcinoma C44.91 Skin lesion L98.9 Left hip pain M25.552 Medical History Medical History Abnormal CT scan of head Actinic keratosis Allergic rhinitis Cardiovascular disease Chest pain Discharge planning issues Hx of colonic polyps Hydrocele Hypertension Pulmonary nodule 0.4mm - no f/u recommended Skin cancer Surgical History Surgical History Colonoscopy - IV Sedation (01/06/12) DR. TIMMONS-2 TUBULAR ADENOMAS Colonoscopy - MAC (05/19/17) History of shoulder surgery left Stented coronary artery 2013 Tobacco Smoking/Tobacco Use Status: Never Passive smoking exposure: Yes (In the s) Second hand exposure: Yes Alcohol Alcohol Intake: current Alcohol intake frequency: a few times a week Alcohol type: beer, wine and hard liquor Substance Use Substance use: Never Substance use type: does not use Details: alcohol t-2, beer x 1 and hard liquor x 1 Vital Signs and Lab Results Vital Signs Most Recent Vital Signs in EMR: Most Recent Vital Signs Temp Pulse Resp BP Pulse Ox 36.2 C L 55 L 16 148/96 H 100 05/21/23 08:40 05/21/23 08:40 05/21/23 08:40 05/21/23 08:40 05/21/23 08:40 Lab Results Blood Type / Crossmatch: No Data to Display Complete Blood Count: No Data to Display Complete Metabolic Panel: No Data to Display Liver Function Panel: No Data to Display Coagulation Panel: No Data to Display Cardiac Panel: No Data to Display Arterial Blood Gas: No Data to Display Venous Blood Gas: No Data to Display Pancreas Panel: No Data to Display Thyroid Panel: No Data to Display Infectious Disease: No Data to Display Blood Cultures: No Data to Display Toxicology Panel: No Data to Display Imaging and Studies Imaging and Studies Study information below may be from another EMR and interpreted by another provider. Please see original notes in EMR for more complete details. EKG Summary: Conclusion Sinus bradycardia...rate< 60 Prolonged ME interval...ME >220, V-rate 50- 90 ST elevation, consider anterior injury...ST >0.15mV, V1-V5 04/21/21 Echocardiogram Summary: Conclusion Left Ventricle : The left ventricle is normal size. The left ventricular systolic function is normal. The left ventricular ejection fraction is within the normal range. There is normal left ventricular wall thickness. There is normal LV segmental wall motion. The left ventricular diastolic function is normal. LVEF is 58%. Right Ventricle : The right ventricle is normal size. The right ventricular systolic function is normal. The RVSP is 24 mmHg. Atria : The left atrium size is normal. The right atrium size is normal. Mitral Valve : Mild mitral regurgitation. Mitral regurgitation jet is eccentrically directed. No evidence of mitral valve stenosis. Mild mitral valve prolapse. Great Vessels : The aortic root is normal in size. The ascending aorta is normal in size. Aortic arch is normal in caliber. IVC is normal in size and collapses >50% with inspiration. Please see remainder of study for further details. 04/22/21 Anesthesia Assessment and Plan Anesthesia History Personal History: No History of Anesthesia Complications Family History: No Family History of Anesthesia Complications Exercise Tolerance Exercise Tolerance: Metabolic Equivalents>4 Pertinent Negatives Pertinent Negatives: No Symptoms of GERD, No Major Cardiovascular Symptoms or Complaints and No Major Pulmonary Symptoms or Complaints Cardiac & Pulmonary Exam Cardiac Exam: Normal S1/S2 Heart Sounds Pulmonary Exam: Clear Bilateral Breath Sounds Implantable Cardiac Device Does patient have a Pacemaker or an ICD?: No Airway Exam Known Difficult Airway: No Mallampati Class: 2 Mouth Opening: Normal (> 3cm) Thyromental Distance: Greater than 3 cm Neck Range of Motion: Full ROM Neck Circumference: Normal Teeth Condition: Normal Dentition ASA Classification ASA Score: ASA 2 Emergency Case?: No NPO Status NPO Status: NPO Clears >2 hours, Solids >8 hours Anesthesia Plan Resuscitation Status: Full Code Anesthesia Technique: General Anesthesia Airway Planned: Natural Airway Monitors Used: Standard Monitors
[2023-05-21 08:57] VITALS: BMI 24.9
--- NOTE | 2023-05-21 09:18 | BOWEL_PTH ---
PATIENT: Jose F Tom LOC: [facility] U#:[id number] AGE/SX: 78/M ROOM: RE05/21/[address]: Natalia Zuñiga : 1945 BED: DIS: 05/21/2023 SPEC #: [id number] RECD: 05/21/23 12:23 STATUS: MITA RERodney #: [id number] DAVID: 05/21/23 09:[address]: Natalia Zuñiga DEPT: Surgical Specimen RECD BY: Rosina Chery ENTERED: 05/21/23 12:24 SP TYPE: Bowel OTHR DR: Sunita Haynes MD, DC Tissues: 1 - BIOPSY BOWEL Procedures: GROSS AND MICRO LEVEL 4 Comments: [id number]
[2023-05-21 09:42] VITALS: BP 99/67; PULSE 45; RESP 16; TEMP 36.2; O2SAT 100
--- NOTE | 2023-05-21 10:00 | W.ANESPOSTOP ---
Postoperative Evaluation Date, Time and Location Date Performed: 05/21/23 Time Performed: 09:52 Patient Location: Day Surgery Unit Vital Signs Most Recent Imported Vital Signs: Most Recent Vital Signs Temp Pulse Resp BP Pulse Ox 36.2 C L 45 L 16 99/67 L 100 05/21/23 09:42 05/21/23 09:42 05/21/23 09:42 05/21/23 09:42 05/21/23 09:42 Pain Score Most Recent Pain Score: Most Recent Pain Score Pain Level 0 05/21/23 09:42 Assessment Mental Status: Awake (Alert & Oriented to Patient Baseline) Airway and Respiratory Function: Patent airway with normal (patient baseline) respiratory exam Cardiovascular Function: Hemodynamically Stable Hydration Status: Adequately Hydrated Nausea & Vomiting: No Nausea or Vomiting Pain: Pt. Denies Any Pain Peripheral Nerve Block: Patient did not receive a nerve block
[2023-05-21 10:10] VITALS: BP 142/68; PULSE 50; RESP 18; TEMP 36; O2SAT 100
== END 2023-05-21 11:03 | disposition home or self-care (01) ==
PROVIDERS: PCP Family Medicine; Visit Provider Surgery
PROC: 0DJD8ZZ Inspection of Lower Intestinal Tract, Via Natural or Artificial Opening Endoscopic (ICD-10-PCS; CPT 45378; principal; 2023-05-21 09:45)
DX: Z12.11 Encounter for screening for malignant neoplasm of colon (principal); Z86.010 Personal history of colon polyps; K57.30 Diverticulosis of large intestine without perforation or abscess without bleeding; K64.4 Residual hemorrhoidal skin tags; K63.5 Polyp of colon
CPT/HCPCS: 45380; 88305; J2001

== ENCOUNTER 2023-08-11 04:45 | Outpatient (CLI) | payer MEDICARE, SELFPAY ==
[2023-08-11 12:46] LABS: ALT 27 U/L (16-63); AST 21 U/L (15-37); Albumin 3.8 g/dL (3.4-5.0); Alkaline Phosphatase 56 U/L (46-116); Anion Gap 5.8 mmol/L (3-11); BUN 24 mg/dL (7-18); Bilirubin, Total 1.5 mg/dL (0.2-1.0); CO2 31.2 mmol/L (21.0-32.0); Calculated LDL 53 mg/dL (<100); Chloride 105 mmol/L (98-107); Cholesterol 149 mg/dL (<200); Estimated GFR 77.04 (mL/min/1.73m2); Glucose 105 mg/dL (74-106); HDL Cholesterol 91 mg/dL (40-60); Potassium 4.3 mmol/L (3.5-5.1); Sodium 142 mmol/L (136-145); Total Protein 6.8 g/dL (6.4-8.2); Triglyceride 26 mg/dL (<150)
[2023-08-11 17:45] LABS: PSA, Diagnostic 1.7 ng/mL (<=6.5)
== END 2023-08-11 04:46 | disposition home or self-care (01) ==
LOC: LOS 04:45
PROVIDERS: PCP Family Medicine; Visit Provider Family Medicine
DX: I10 Essential (primary) hypertension (principal); N40.0 Benign prostatic hyperplasia without lower urinary tract symptoms
CPT/HCPCS: 36415; 80053; 80061; 84153

== ENCOUNTER → 2023-09-02 02:13 | Outpatient (CLI) | payer MEDICARE, SELFPAY ==
--- NOTE | 2023-09-02 13:30 | DI.MRI_ITS ---
Exam(s) MR BRAIN WO EXAM: MR BRAIN WO CLINICAL HISTORY: check for change,brain lesion,g93.9 TECHNIQUE: Multiplanar multisequence MRI of the brain was performed. COMPARISON: MR MR BRAIN WO/W from 12/02/2020 FINDINGS: VENTRICLES AND EXTRA AXIAL SPACES: The right intraventricular cystic lesion is unchanged in size edgar uring 5.9 cm AP x 3.4 cm transverse by 2.7 cm craniocaudad. This compares to 6 x 3.3 x 2.7 on the pr ior examination. There is persistent enlargement of the right lateral ventricle and midline shift to the left. MIDLINE SHIFT: None. CEREBRAL PARENCHYMA: No focus of restricted diffusion to suggest acute infarct. No space-occupying le bebeto identified. There are several areas of hyperintense signal seen in the white matter on the T2 an d FLAIR images consistent with chronic microvascular ischemic disease. HEMORRHAGE: None. BRAINSTEM/CEREBELLUM: Normal. CALVARIUM: Normal. VISUALIZED PARANASAL SINUSES/MASTOIDS:There is mucosal thickening seen in the maxillary sinuses bilat erally and mild mucosal thickening in the ethmoid air cells bilaterally. The remaining visualized pa ranasal sinuses and mastoid air cells are clear. [place]: Normal flow void. [place]: Unremarkable. OTHER FINDINGS: None. IMPRESSION: Stable right intraventricular cystic lesion. DATA REPOSITORY:
== END ==
PROVIDERS: PCP Family Medicine; Visit Provider Family Medicine
DX: G93.9 Disorder of brain, unspecified (principal)
CPT/HCPCS: 70551

== ENCOUNTER → 2023-09-06 08:59 | Outpatient (BNVA) | payer MEDICARE, SELFPAY | PROVIDERS: PCP Family Medicine; Referring Provider Family Medicine; Visit Provider Surgery | DX: L98.9 Disorder of the skin and subcutaneous tissue, unspecified (principal); L72.3 Sebaceous cyst; Z85.828 Personal history of other malignant neoplasm of skin | CPT/HCPCS: 99213 ==

== ENCOUNTER 2023-10-01 08:54 | Day surgery (SDC) | payer MEDICARE, SELFPAY ==
--- NOTE | 2023-09-30 20:24 | PDOC.DSDIS_ITS ---
Date of service: 10/01/23 Time of Service: 11:48 Discharge Plan Disposition Patient Disposition: Home Condition: Good Discharge Details Reason For Visit: Excision and primary closure of skin lesions Attending Provider: Anton Madison Primary Care Provider: Sunita Haynes Home Meds and New Rx's Prescriptions: Continued atorvastatin [Lipitor] 40 mg tablet 40 mg PO DAILY Qty: 90 5RF calcium citrate-vitamin D3 [Calcium Citrate +] 1 EACH tablet 1 ea PO DAILY metoprolol tartrate 25 mg tablet 25 mg PO BID Qty: 180 5RF hydrochlorothiazide 12.5 mg capsule 12.5 mg PO QAM Qty: 90 4RF Paxlovid 300 mg (150 mg x 2)-100 mg tablets,dose pack See Rx Instructions PO PER PKG DIR Qty: 1 0RF Rx Instructions: PO PER PKG DIR. Stop atorvastatin while on paxlovid aspirin [Aspir-81] 81 MG tablet,delayed release (DR/EC) 81 mg PO DAILY yfczxmyhguh-jgbrwicsp-iih C-Mn [Glucosamine 1500 Complex] 1 EACH capsule 1 cap PO BID lutein-zeaxanthin 1 EACH capsule 1 cap PO DAILY vitamin E 400 UNIT capsule 400 mg PO DAILY ascorbic acid-ascorbate sodium 500 MG wafer 500 mg PO DAILY omega-3 fatty acids-vitamin E 1,000 mg Capsule 1 cap PO DAILY Discharge Instructions Additional Instructions: Jose F, we were able to remove the lesions on your left adventist, left hand, and right chest wall just like we talked about beforehand. The lesion on your chest wall is a sebaceous cyst. Excision is the treatment of choice, and it should heal up just fine without any issues. I will send off the lesions from your left hand and left adventist to see exactly what caused them. The pathology report usually takes about a week to get the results from, and if there is anything that we need to change, I will certainly let you know. Otherwise, we will plan to see you in the office for suture removal 1. Resume all of your medications. 2. It is fine to use heating pads or ice packs over the incisions to help with discomfort. 3. Okay to use tylenol and ibuprofen over the counter as needed. 4. Leave bandage in place for 24 hours, then remove. 5. Shower with warm soapy water. Pat dry. Use a bandaid if needed to protect your clothing. 6. No soaking or tub baths until I see you in the office. 7. No heavy lifting until I see you in the office. 8. Call the office (or go directly to the emergency room after hours) if you notice any of the following: Develop chills (warm to touch), or if you have a thermometer and your temperature is above 101 Difficulty breathing or difficultly swallowing Persistent vomiting Any bleeding ? exceeding one tablespoon 9. Call your physician if the site where your intravenous was started becomes red, swollen, painful, and warm to touch. Referrals: Anton Madison MD [ [facility] STAFF PHYSICIAN] - (Jose F needs an appointment on the or the for suture removal.) Activity:: Activity as Tolerated Remove Dressings/Wound Care:: 24 hours Shower/Bathe:: 24 hours Diet:: As Tolerated DS: Diagnosis Discharge Diagnosis (1) Sebaceous cyst: Status: Acute (2) Hand lesion: Status: Acute
--- NOTE | 2023-09-30 20:26 | ROE_ITS ---
Date of service: 10/01/23 Time of Service: 11:52 Operative Note Operative Note DATE OF PROCEDURE: 10/01/23 PRE-OP DIAGNOSIS: Right-sided costal margin sebaceous cyst, skin lesions of the left christian and left hand PROCEDURE: Excision and primary closure of right costal margin sebaceous cyst, excision and primary closure of skin lesion from dorsum of left hand, excision and primary closure of skin lesion from left christian SURGEON: Anton Madison BILLET HEADER: Penelope Sotomayor ANESTHESIA TYPE: Local By Surgeon Refer to Anesthesia Record ESTIMATED BLOOD LOSS: 15 PATHOLOGY: other (Sebaceous cyst from right costal margin, skin lesion from dorsum of left hand single stitch romo towards the thumb, 2 stitches romo towards the fingers or distal, skin lesion from left christian suture romo lateral) COMPLICATIONS: None Patient was transported to: same day Patient's condition: stable Indications: Devin is a 78-year-old male who has a painful enlarging sebaceous cyst on the right costal margin. He also has skin lesions on the dorsum of the left hand and the left christian that seems suspicious for basal cell carcinoma Procedure Description: We started by prepping and draping the left hand, as well as the right costal margin. Next, local anesthetic with epinephrine was used to establish generous field blocks. We then made a biconvex semielliptical incision around the skin lesion on the dorsum of the left hand. Was a full-thickness incision down to the subcutaneous fat. The skin was then dissected away from the underlying soft tissues. Small veins were controlled with hemostats, and the excision was completely excised. 2 sutures were used to sherrill the more distal aspect, or the side closer to the fingers. 1 suture was used to sherrill the side closest of the thumb. The wound was irrigated. The small vessels were controlled with Vicryl stitches. The skin was closed with vertical mattress sutures. The lesion on the right costal margin was incised in a similar fashion. This dissection was carried out into the soft tissues, capsule was encountered consistent with a sebaceous cyst. Great care was taken to dissect the cyst away from the surrounding soft tissues. It was excised completely with all of it cyst wall. The wound was irrigated, and the skin was approximated with interrupted Prolene stitches. Finally, we turned our attention to the left temporal region. This was also prepped and draped, field block was established here as well, and using a similar incision technique, the lesion and a small margin of normal-appearing skin at the periphery was excised sharply. It was from the underlying soft tissues and excised completely. 1 suture was used to sherrill the more lateral aspect of the specimen. The wound was irrigated, and the skin was approximated with interrupted Prolene sutures. Bacitracin was applied to the left temporal incision, as well as the wound on the dorsum of left hand. Band-Aid was also applied to the left hand incision. The patient was then brought back to the day surgery unit for ongoing recovery and monitoring.
[2023-10-01 09:36] VITALS: BP 125/79; PULSE 55; RESP 16; TEMP 36.4; O2SAT 99
[2023-10-01] MEDS: Lidocaine/Prilocaine Cream 5 GM TUBE TP (09:47)
--- NOTE | 2023-10-01 11:19 | SKI_PTH ---
PATIENT: Jose F Tom LOC: PAR[facility] U#:[id number] AGE/SX: 78/M ROOM: RE10/01/[address]: Anton Madison MD : 1945 BED: DIS: 10/01/2023 SPEC #: [id number] RECD: 10/01/23 12:41 STATUS: MITA RE #: [id number] DAVID: 10/01/23 11:[address]: Anton Madison DEPT: Surgical Specimen RECD BY: Rosina Chery ENTERED: 10/01/23 12:41 SP TYPE: TYLER KERR DR: Sunita Haynes MD, DC Tissues: 1 - SKIN BIOPSY(SHAVE/PUNCH) 2 - SKIN BIOPSY(SHAVE/PUNCH) Procedures: SKIN LEVEL 4 Comments: [id number]
[2023-10-01] MEDS: Bacitracin 1 PACKET (11:42)
[2023-10-01 11:51] VITALS: BP 136/79; PULSE 54; RESP 16; TEMP 36.2; O2SAT 98
--- NOTE | 2023-10-01 12:24 | NUR.NOTE ---
10/01/23 at 12:20pm. Patient had Local Procedure. Patient A & O X 4. VSS. Patient dnies pain or nausea. Patient cyst removal sites CDI with sutures and bandaids in place from procedure room. Reviewed all procedure and discharge instructions with patient. Provided printed procedure discharge instructions to patient. Patient verbalized understanding of all instructions. Patient meets all discharge criteria per facility policy. Patient discharged to home from [facility] at 12:26pm.Darci Coreas RN. Nursing Note:
== END 2023-10-01 12:26 | disposition home or self-care (01) ==
LOC: SUR 08:55
PROVIDERS: PCP Family Medicine; Visit Provider Surgery
PROC: (CPT 11402; principal; 2023-10-01 10:30)
DX: C44.329 Squamous cell carcinoma of skin of other parts of face; C44.629 Squamous cell carcinoma of skin of left upper limb, including shoulder
CPT/HCPCS: 11402; 11622; 11621; 87624; 88305; J2003

== ENCOUNTER → 2023-10-13 08:51 | Outpatient (BNVA) | payer MEDICARE, SELFPAY | PROVIDERS: PCP Family Medicine; Referring Provider Family Medicine; Visit Provider Surgery | DX: Z48.817 Encounter for surgical aftercare following surgery on the skin and subcutaneous tissue (principal) ==

== ENCOUNTER → 2023-12-30 10:00 | Outpatient (BNVA) | payer MEDICARE, SELFPAY | PROVIDERS: PCP Family Medicine; Referring Provider Family Medicine; Visit Provider Surgery | DX: L98.9 Disorder of the skin and subcutaneous tissue, unspecified (principal) | CPT/HCPCS: 99213 ==

== ENCOUNTER 2024-09-04 04:28 | Outpatient (CLI) | payer MEDICARE, SELFPAY ==
[2024-09-04 13:30] LABS: ALT 24 U/L (16-63); AST 25 U/L (15-37); Albumin 3.7 g/dL (3.4-5.0); Alkaline Phosphatase 53 U/L (46-116); Anion Gap 6.7 mmol/L (3-11); BUN 25 mg/dL (7-18); CO2 29.3 mmol/L (21.0-32.0); CREATININE 1.1 mg/dL (0.70-1.30); Calcium 9.2 mg/dL (8.5-10.1); Chloride 109 mmol/L (98-107); Cholesterol 127 mg/dL (<200); Estimated GFR 68.29 (mL/min/1.73m2); Glucose 105 mg/dL (74-106); HDL Cholesterol 85 mg/dL (40-60); Potassium 4.4 mmol/L (3.5-5.1); Sodium 145 mmol/L (136-145); Total Protein 6.4 g/dL (6.4-8.2); Vitamin B12 399 pg/mL (193-986)
[2024-09-04 13:31] LABS: Triglyceride <25 mg/dL (<150)
[2024-09-04 13:44] LABS: LDL CHOLESTEROL 43 mg/dL (<100)
[2024-09-04 19:09] LABS: Hepatitis C Ab w Rflx HCV PCR Negative (Negative)
== END 2024-09-04 04:29 | disposition home or self-care (01) ==
LOC: LOS 04:28
PROVIDERS: PCP Family Medicine; Visit Provider Family Medicine
DX: I10 Essential (primary) hypertension (principal); Z11.59 Encounter for screening for other viral diseases; E53.8 Deficiency of other specified B group vitamins
CPT/HCPCS: 36415; 80053; 80061; 83721; 86803; 82607